=== PATIENT | female | born 1940 | race Caucasian/White ===

== ENCOUNTER → 2016-06-03 | Outpatient (CLI) | payer MEDICARE, OTHER ==
[~2016-06-03] MED LIST: IOHEXOL 350 MG/ML 100ML IJ ONE
[2016-06-03 09:10] VITALS: BP 160/80
[2016-06-03 10:00] VITALS: BP 174/84
== END | disposition home or self-care (01) ==
LOC: Rad HDHVI 09:00
PROVIDERS: ATTEND Internal Medicine Cardiovascular Disease
DX: E03.9 Hypothyroidism, unspecified (principal); E55.9 Vitamin D deficiency, unspecified
CPT/HCPCS: 36415; 70460; 70491; 82306; 84439; 84443; G0463

== ENCOUNTER → 2016-06-04 | Outpatient (CLI) | payer MEDICARE, OTHER ==
[2016-06-04 16:11] LABS: Urine Bilirubin Negative (Negative); Urine Blood Negative /uL (Negative); Urine Color Yellow (Yellow); Urine Glucose Normal (Normal); Urine Ketone Negative (Negative); Urine Nitrite Negative (Negative); Urine Urobilinogen Normal (Negative)
[2016-06-04 16:35] LABS: Albumin 3.6 g/dL (3.4-5.0); BUN/Creatinine Ratio 13.4; Bilirubin, Direct 0.1 mg/dL (0-0.2); Bilirubin, Total 0.5 mg/dL (0.2-1.0); Calcium 9.4 mg/dL (8.5-10.1); Magnesium 2.7 mg/dL (1.6-2.6); Potassium 4.4 mmol/L (3.5-5.1); Total Protein 7.5 g/dL (6.4-8.2)
[2016-06-04 17:03] LABS: Basophils # (auto) 0 uL; Basophils % (auto) 0.2 % (0.0-2.0); Eosinophils # (auto) 0.1 uL; Hematocrit 44.5 % (36.0-46.0); Hemoglobin 14.6 g/dL (12.2-16.2); Lymphocytes # (auto) 1.2 uL; Lymphocytes % (auto) 12.1 % (10.0-50.0); Mean Corpuscular Hemoglobin 30.8 pg (28.0-32.0); Mean Corpuscular Hgb Conc. 32.8 g/dL (32.0-36.0); Mean Corpuscular Volume 93.8 fL (80.0-100.0); Mean Platelet Volume 9.6 fL (7.4-10.4); Monocytes # (auto) 0.6 uL; Monocytes % (auto) 5.8 % (0.0-12.0); Neutrophils # (auto) 7.8 uL; Neutrophils % (auto) 80.9 % (37.0-80.0); Platelet Count (auto) 360 10^3/uL (140-450); Red Cell Distribution Width 13.3 % (11.6-16.0); SUSPECT VIEW TRANSMISSION; White Blood Cell 9.6 10^3/uL (4.4-10.8)
== END | disposition home or self-care (01) ==
LOC: CHF HDHVI 08:22
PROVIDERS: ATTEND Internal Medicine Cardiovascular Disease
DX: E78.00 Pure hypercholesterolemia, unspecified (principal); D64.9 Anemia, unspecified; I10 Essential (primary) hypertension; K74.1 Hepatic sclerosis; E11.9 Type 2 diabetes mellitus without complications; E83.40 Disorders of magnesium metabolism, unspecified; N39.0 Urinary tract infection, site not specified
CPT/HCPCS: 36415; 80048; 80061; 80076; 81003; 83036; 83735; 85025

== ENCOUNTER 2017-05-29 01:05 | Inpatient (IN) | payer MEDICARE, OTHER ==
[~2017-05-29] VITALS: Ht 157.5 cm; Wt 60.0 kg
[2017-05-29 02:13] LABS: Basophils # (auto) 0 uL; Basophils % (auto) 0.2 % (0.0-2.0); Eosinophils # (auto) 0 uL; Eosinophils % (auto) 0.1 % (0.0-7.0); Hematocrit 42.8 % (36.0-46.0); Hemoglobin 14.1 g/dL (12.2-16.2); Lymphocytes # (auto) 0.4 uL; Mean Corpuscular Hemoglobin 30.1 pg (28.0-32.0); Mean Corpuscular Hgb Conc. 32.8 g/dL (32.0-36.0); Mean Corpuscular Volume 91.8 fL (80.0-100.0); Monocytes # (auto) 1.3 uL; Monocytes % (auto) 5.9 % (0.0-12.0); Neutrophils # (auto) 19.6 uL; Neutrophils % (auto) 91.8 % (37.0-80.0); Platelet Count (auto) 319 10^3/uL (140-450); Red Blood Cells 4.67 10^6/uL (4.0-5.20); Red Cell Distribution Width 13.4 % (11.8-14.3); White Blood Cell 21.4 10^3/uL (4.4-10.8)
[2017-05-29] MEDS ORDERED: MECLIZINE HCL 25 MG TAB PO ONE (02:15)
[2017-05-29] MEDS ORDERED: ONDANSETRON HCL 4 MG/2 ML VIAL IV ONE (02:15)
[2017-05-29 02:29] LABS: INR 0.93 (0.9-1.15); Partial Thromboplastin Time 33.1 sec (22.64-33.71); Prothrombin Time 10.1 sec (9.37-12.3)
[2017-05-29 02:32] LABS: Urine Bacteria NONE SEEN /hpf (None Seen); Urine Blood Negative /uL (Negative); Urine Specific Gravity 1.007 (1.001-1.035); Urine WBC 2 /hpf (0 - 5)
[2017-05-29 02:32] LABS: Alanine Aminotransferase 16 U/L (13-56); Albumin 3.3 g/dL (3.4-5.0); Anion Gap 8 (5-15); Aspartate Aminotransferase 16 U/L (15-37); BUN/Creatinine Ratio 13.9; Blood Urea Nitrogen 14 mg/dL (7-18); Calcium 9.1 mg/dL (8.5-10.1); Carbon Dioxide 27 mmol/L (21-32); Chloride 98 mmol/L (98-107); GFR African American 68 mL/min; GFR Non-African American 56 mL/min; Glucose 122 mg/dL (74-106); Potassium 3.9 mmol/L (3.5-5.1); Sodium 133 mmol/L (136-145)
[2017-05-29 02:37] LABS: Alkaline Phosphatase 89 U/L (45-117); Bilirubin, Total 0.6 mg/dL (0.2-1.0); Total Protein 7.2 g/dL (6.4-8.2)
[2017-05-29] MEDS ORDERED: PIPERACILLIN-TAZOB 3.375GM 100 ML IV ONE (03:30)
[2017-05-29] MEDS ORDERED: DOCUSATE SOD 100 MG CAP PO PRN (09:30)
[2017-05-29] MEDS ORDERED: HYDROcodone-ACET 5/325MG TAB PO PRN (09:30)
[2017-05-29] MEDS ORDERED: TEMAZEPAM 15 MG CAP PO PRN (09:30)
[2017-05-29] MEDS ORDERED: NITROGLYCERIN 0.4 MG SL TAB SL PRN (09:30)
[2017-05-29] MEDS ORDERED: ALBUTEROL SULF 2.5 MG/0.5ML(0.5%) NEB SOLN NEB PRN (09:30)
[2017-05-29] MEDS ORDERED: MORPHINE SULFATE 8mg/ml INJ SDV IV PRN ×2 (09:30)
[2017-05-29] MEDS ORDERED: ONDANSETRON HCL 4 MG/2 ML VIAL IV PRN (09:30)
[2017-05-29] MEDS ORDERED: cefTRIAXone 1GM/10ml IVPUSH 10 ML IV ONE (09:30)
[2017-05-29] MEDS: MULTIPLE VITAMIN TAB PO SCH (10:26)
[2017-05-29] MEDS: FAMOTIDINE 20 MG TAB PO SCH ×2 (10:26→21:55)
[2017-05-29] MEDS: cloNIDine HCL 0.1 MG TAB PO PRN (10:27)
[2017-05-29] MEDS: METOPROLOL TARTRATE 50 MG TAB PO SCH ×2 (10:28→21:55)
[2017-05-29] MEDS: AZITHROMYCIN 500MG/ 250ML 200 ML IV SCH (10:28)
[2017-05-29] MEDS ORDERED: LEVOPOW43 PO (11:48)
[2017-05-29] MEDS ORDERED: FURO20TA3 PO (11:49)
[2017-05-29] MEDS ORDERED: CLOPIDOGREL BISULFATE 75 MG TAB PO ONE (12:00)
[2017-05-29] MEDS ORDERED: MET50T PO (12:08)
[2017-05-29] MEDS ORDERED: LEVO50TA7 PO (12:08)
[2017-05-29] MEDS ORDERED: VALS320T15 PO (12:08)
[2017-05-29] MEDS ORDERED: CLOP75TA41 PO (12:08)
[2017-05-29] MEDS ORDERED: POTA20TA53 PO (12:08)
[2017-05-29] MEDS ORDERED: [UNRECOGNIZED DRUG - CODE] PO (12:10)
[2017-05-29] MEDS ORDERED: MOME200A IN (12:10)
[2017-05-29] MEDS: VALSARTAN 80 MG TAB PO SCH ×2 (12:19→21:54)
[2017-05-29] MEDS: [UNRECOGNIZED DRUG - OTHER] PO SCH ×2 (12:30→22:00)
[2017-05-29] MEDS: BOOST PLUS 8 ounce PO SCH ×2 (13:21→18:31)
[2017-05-29] MEDS: FUROSEMIDE 20 MG TAB PO SCH (13:24)
[2017-05-29] MEDS: POTASSIUM CHL 20 Meq TABLET PO SCH ×2 (13:24→21:54)
[2017-05-29] MEDS: SODIUM CHLOR 0.9% PF (SALINE LOCK) 10ML VIAL/SYR IV SCH ×2 (14:20→21:53)
[2017-05-29] MEDS ORDERED: ATOR10TA PO (16:15)
[2017-05-29 19:06] VITALS: BP 140/65
[2017-05-29 20:00] VITALS: BP 141/71
[2017-05-29 20:37] LABS: Folate (Folic Acid) 19.17 ng/mL (5.38-24)
[2017-05-29] MEDS: ACETAMINOPHEN 325 MG TAB PO PRN (21:13)
[2017-05-29 22:00] VITALS: BP 141/71
[2017-05-29] MEDS ORDERED: VALSARTAN PO SCH (22:00)
[2017-05-29] MEDS ORDERED: POTASSIUM CHL 20 Meq TABLET PO SCH (22:00)
[2017-05-29] MEDS: Mometasone Furoate-Formoterol (Dulera) IN SCH (22:00)
[2017-05-29] MEDS ORDERED: METOPROLOL TARTRATE 50 MG TAB PO SCH ×2 (22:00)
[2017-05-30 05:00] VITALS: BP 135/71
[2017-05-30 06:31] LABS: Basophils # (auto) 0 uL; Basophils % (auto) 0.4 % (0.0-2.0); Eosinophils # (auto) 0.4 uL; Eosinophils % (auto) 3.7 % (0.0-7.0); Hematocrit 35.7 % (36.0-46.0); Hemoglobin 11.9 g/dL (12.2-16.2); Lymphocytes # (auto) 1.2 uL; Lymphocytes % (auto) 12.3 % (10.0-50.0); Mean Corpuscular Hemoglobin 30.7 pg (28.0-32.0); Mean Corpuscular Hgb Conc. 33.3 g/dL (32.0-36.0); Monocytes % (auto) 10.3 % (0.0-12.0); Neutrophils % (auto) 73.3 % (37.0-80.0); Nucleated Red Blood Cells % 0.1 %; Platelet Count (auto) 271 10^3/uL (140-450); Red Blood Cells 3.88 10^6/uL (4.0-5.20); Red Cell Distribution Width 13.1 % (11.8-14.3); White Blood Cell 9.6 10^3/uL (4.4-10.8)
[2017-05-30] MEDS: SODIUM CHLOR 0.9% PF (SALINE LOCK) 10ML VIAL/SYR IV SCH ×3 (06:36→22:00)
[2017-05-30 06:47] LABS: Potassium 4.5 mmol/L (3.5-5.1)
[2017-05-30 06:51] LABS: Albumin 2.6 g/dL (3.4-5.0); BUN/Creatinine Ratio 16.2
[2017-05-30 06:53] LABS: Bilirubin, Total 0.5 mg/dL (0.2-1.0); Total Protein 5.9 g/dL (6.4-8.2)
[2017-05-30 07:54] VITALS: BP 152/64
[2017-05-30] MEDS: Mometasone Furoate-Formoterol (Dulera) IN SCH (10:00)
[2017-05-30] MEDS: [UNRECOGNIZED DRUG - OTHER] PO SCH ×3 (10:00→20:59)
[2017-05-30] MEDS ORDERED: VALSARTAN 80 MG TAB PO SCH (11:00)
[2017-05-30] MEDS: FAMOTIDINE 20 MG TAB PO SCH ×2 (11:12→21:44)
[2017-05-30] MEDS: METOPROLOL TARTRATE 50 MG TAB PO SCH ×2 (11:12→18:00)
[2017-05-30] MEDS: CLOPIDOGREL BISULFATE 75 MG TAB PO SCH (11:13)
[2017-05-30] MEDS: FUROSEMIDE 20 MG TAB PO SCH (11:15)
[2017-05-30] MEDS: MULTIPLE VITAMIN TAB PO SCH (11:16)
[2017-05-30] MEDS: LEVOTHYROXINE SODIUM 50 MCG TAB PO SCH (11:16)
[2017-05-30] MEDS: POTASSIUM CHL 20 Meq TABLET PO SCH ×2 (11:17→21:44)
[2017-05-30] MEDS: cefTRIAXone 1GM/10ml IVPUSH 10 ML IV SCH (11:23)
[2017-05-30] MEDS: AZITHROMYCIN 500MG/ 250ML 200 ML IV SCH (11:23)
[2017-05-30] MEDS: BOOST PLUS 8 ounce PO SCH ×3 (11:24→20:57)
[2017-05-30] MEDS: cloNIDine HCL 0.1 MG TAB PO PRN (15:31)
[2017-05-30] MEDS: ACETAMINOPHEN 325 MG TAB PO PRN (15:53)
[2017-05-30 15:56] VITALS: BP 165/87
[2017-05-30 17:00] VITALS: BP 148/71
[2017-05-30] MEDS ORDERED: LORazepam 2MG/ML-1ML VIAL IV PRN (18:00)
[2017-05-30 20:00] VITALS: BP 147/79
[2017-05-30] MEDS: VALSARTAN 80 MG TAB PO SCH (20:58)
[2017-05-30] MEDS: BUDESONIDE (INHALATION) 0.5 MG/2 ML NEB NEB SCH (22:00)
[2017-05-30 22:31] VITALS: BP 147/79
[2017-05-31 05:13] VITALS: BP 158/69
[2017-05-31] MEDS: SODIUM CHLOR 0.9% PF (SALINE LOCK) 10ML VIAL/SYR IV SCH ×2 (05:32→14:08)
[2017-05-31] MEDS: VALSARTAN 80 MG TAB PO SCH ×2 (05:43→18:21)
[2017-05-31] MEDS: FUROSEMIDE 20 MG TAB PO SCH (05:44)
[2017-05-31] MEDS: METOPROLOL TARTRATE 50 MG TAB PO SCH ×2 (05:44→18:22)
[2017-05-31] MEDS: [UNRECOGNIZED DRUG - OTHER] PO SCH ×3 (06:00→18:20)
[2017-05-31] MEDS: LEVOTHYROXINE SODIUM 50 MCG TAB PO SCH (07:07)
[2017-05-31 07:35] VITALS: BP 192/90
[2017-05-31] MEDS: BOOST PLUS 8 ounce PO SCH ×3 (08:28→18:22)
[2017-05-31] MEDS: cefTRIAXone 1GM/10ml IVPUSH 10 ML IV SCH (09:52)
[2017-05-31 09:58] VITALS: BP 140/77
[2017-05-31] MEDS: AZITHROMYCIN 500MG/ 250ML 250 ML IV SCH (09:58)
[2017-05-31] MEDS: POTASSIUM CHL 20 Meq TABLET PO SCH ×2 (09:58→22:24)
[2017-05-31] MEDS: CLOPIDOGREL BISULFATE 75 MG TAB PO SCH (09:58)
[2017-05-31] MEDS: FAMOTIDINE 20 MG TAB PO SCH ×2 (09:58→22:24)
[2017-05-31] MEDS: MULTIPLE VITAMIN TAB PO SCH (09:58)
[2017-05-31] MEDS: BUDESONIDE (INHALATION) 0.5 MG/2 ML NEB NEB SCH (10:35)
[2017-05-31] MEDS: ACETAMINOPHEN 325 MG TAB PO PRN (14:28)
[2017-05-31 17:03] VITALS: BP 142/67
[2017-05-31 22:26] VITALS: BP 164/86
[2017-05-31] MEDS: cloNIDine HCL 0.1 MG TAB PO PRN (22:27)
[2017-06-01] MEDS: SODIUM CHLOR 0.9% PF (SALINE LOCK) 10ML VIAL/SYR IV SCH ×4 (01:40→21:39)
[2017-06-01] MEDS: ACETAMINOPHEN 325 MG TAB PO PRN (02:26)
[2017-06-01 05:24] VITALS: BP 154/76
[2017-06-01] MEDS: METOPROLOL TARTRATE 50 MG TAB PO SCH ×2 (06:00→18:32)
[2017-06-01] MEDS: VALSARTAN 80 MG TAB PO SCH ×2 (07:04→18:00)
[2017-06-01] MEDS: FUROSEMIDE 20 MG TAB PO SCH (07:08)
[2017-06-01] MEDS: LEVOTHYROXINE SODIUM 50 MCG TAB PO SCH (07:08)
[2017-06-01] MEDS: [UNRECOGNIZED DRUG - OTHER] PO SCH (07:09)
[2017-06-01 07:11] LABS: Basophils # (auto) 0 uL; Basophils % (auto) 0.5 % (0.0-2.0); Eosinophils # (auto) 0.2 uL; Eosinophils % (auto) 2.8 % (0.0-7.0); Hematocrit 37.9 % (36.0-46.0); Hemoglobin 12.6 g/dL (12.2-16.2); Lymphocytes # (auto) 1.1 uL; Lymphocytes % (auto) 12.2 % (10.0-50.0); Mean Corpuscular Hemoglobin 30.4 pg (28.0-32.0); Mean Corpuscular Hgb Conc. 33.4 g/dL (32.0-36.0); Mean Corpuscular Volume 91.1 fL (80.0-100.0); Monocytes # (auto) 0.8 uL; Monocytes % (auto) 9.3 % (0.0-12.0); Neutrophils # (auto) 6.5 uL; Neutrophils % (auto) 75.2 % (37.0-80.0); Nucleated Red Blood Cells % 0.1 %; Platelet Count (auto) 308 10^3/uL (140-450); Red Blood Cells 4.16 10^6/uL (4.0-5.20); Red Cell Distribution Width 12.9 % (11.8-14.3); White Blood Cell 8.6 10^3/uL (4.4-10.8)
[2017-06-01 07:25] VITALS: BP 167/89
[2017-06-01 07:46] LABS: Albumin 2.7 g/dL (3.4-5.0); BUN/Creatinine Ratio 17.5; Bilirubin, Total 0.2 mg/dL (0.2-1.0); Calcium 9.1 mg/dL (8.5-10.1); Potassium 4.5 mmol/L (3.5-5.1); Total Protein 6.4 g/dL (6.4-8.2)
[2017-06-01] MEDS: BOOST PLUS 8 ounce PO SCH ×3 (08:14→18:00)
[2017-06-01] MEDS: AZITHROMYCIN 500MG/ 250ML 250 ML IV SCH (09:39)
[2017-06-01] MEDS: FAMOTIDINE 20 MG TAB PO SCH ×2 (09:39→21:34)
[2017-06-01] MEDS: POTASSIUM CHL 20 Meq TABLET PO SCH ×2 (09:39→21:33)
[2017-06-01] MEDS: cefTRIAXone 1GM/10ml IVPUSH 10 ML IV SCH (09:39)
[2017-06-01] MEDS: MULTIPLE VITAMIN TAB PO SCH (09:40)
[2017-06-01] MEDS: CLOPIDOGREL BISULFATE 75 MG TAB PO SCH (09:40)
[2017-06-01] MEDS: ADVAIR 500/50 IN SCH (10:55)
[2017-06-01 12:34] VITALS: BP 142/75
[2017-06-01] MEDS: SODIUM CHLORIDE 0.9% 1,000 ML IV SCH (13:54)
[2017-06-01 16:57] VITALS: BP 148/75
[2017-06-01] MEDS: ALISKIREN 150 MG PO SCH (18:33)
[2017-06-01 22:20] VITALS: BP 161/78
[2017-06-02] VITALS (7 sets, daily range): BP systolic 123–199; BP diastolic 45–88
[2017-06-02] MEDS: SODIUM CHLORIDE 0.9% 1,000 ML IV SCH ×2 (02:20→15:40)
[2017-06-02] MEDS: SODIUM CHLOR 0.9% PF (SALINE LOCK) 10ML VIAL/SYR IV SCH ×3 (06:00→22:39)
[2017-06-02] MEDS: ALISKIREN 150 MG PO SCH ×2 (06:19→18:29)
[2017-06-02] MEDS: LEVOTHYROXINE SODIUM 50 MCG TAB PO SCH (06:20)
[2017-06-02] MEDS: VALSARTAN 80 MG TAB PO SCH ×2 (06:20→18:29)
[2017-06-02] MEDS: FUROSEMIDE 20 MG TAB PO SCH (06:21)
[2017-06-02] MEDS: METOPROLOL TARTRATE 50 MG TAB PO SCH ×2 (06:21→18:29)
[2017-06-02] MEDS: cloNIDine HCL 0.1 MG TAB PO PRN ×2 (07:54→19:56)
[2017-06-02] MEDS: BOOST PLUS 8 ounce PO SCH ×3 (08:00→18:00)
[2017-06-02] MEDS: cefTRIAXone 1GM/10ml IVPUSH 10 ML IV SCH (09:00)
[2017-06-02] MEDS: ADVAIR 500/50 IN SCH (10:00)
[2017-06-02] MEDS: AZITHROMYCIN 500MG/ 250ML 250 ML IV SCH (11:21)
[2017-06-02] MEDS: FAMOTIDINE 20 MG TAB PO SCH ×2 (11:22→22:40)
[2017-06-02] MEDS: CLOPIDOGREL BISULFATE 75 MG TAB PO SCH (11:22)
[2017-06-02] MEDS: MULTIPLE VITAMIN TAB PO SCH (11:22)
[2017-06-02] MEDS: POTASSIUM CHL 20 Meq TABLET PO SCH ×2 (11:22→22:40)
[2017-06-02] MEDS ORDERED: cloNIDine HCL 0.1 MG TAB PO ONE (21:45)
== END 2017-06-02 23:40 | disposition home or self-care (01) | DRG 871 ==
LOC: EDBD 01:05 → ER 01:05 → TELE 01:06 → TELE-WESTW 18:56
PROVIDERS: ADMIT Internal Medicine; ATTEND Internal Medicine Cardiovascular Disease
DX: A41.9 Sepsis, unspecified organism (principal); J96.90 Respiratory failure, unspecified, unspecified whether with hypoxia or hypercapnia; I13.0 Hypertensive heart and chronic kidney disease with heart failure and stage 1 through stage 4 chronic kidney disease, or unspecified chronic kidney disease; J18.1 Lobar pneumonia, unspecified organism; E44.0 Moderate protein-calorie malnutrition; G62.9 Polyneuropathy, unspecified; I50.9 Heart failure, unspecified; E87.1 Hypo-osmolality and hyponatremia; N39.0 Urinary tract infection, site not specified; J44.0 Chronic obstructive pulmonary disease with (acute) lower respiratory infection; N18.3 Chronic kidney disease, stage 3 (moderate); E78.5 Hyperlipidemia, unspecified; I25.10 Atherosclerotic heart disease of native coronary artery without angina pectoris; F41.9 Anxiety disorder, unspecified; F17.200 Nicotine dependence, unspecified, uncomplicated; T45.1X5A Adverse effect of antineoplastic and immunosuppressive drugs, initial encounter; E78.00 Pure hypercholesterolemia, unspecified; I95.1 Orthostatic hypotension; E03.9 Hypothyroidism, unspecified; H91.90 Unspecified hearing loss, unspecified ear; Z86.73 Personal history of transient ischemic attack (TIA), and cerebral infarction without residual deficits; Y92.89 Other specified places as the place of occurrence of the external cause; Z85.6 Personal history of leukemia; Z82.49 Family history of ischemic heart disease and other diseases of the circulatory system; Z90.49 Acquired absence of other specified parts of digestive tract; Z98.51 Tubal ligation status; Z88.5 Allergy status to narcotic agent; Z88.2 Allergy status to sulfonamides; Z88.8 Allergy status to other drugs, medicaments and biological substances
CPT/HCPCS: 36415; 70450; 71045; 80053; 81001; 82607; 82746; 82962; 83735; 83880; 84484; 85025; 85610; 85730; 87040; 87804; 92610; 93005; 93306; 93886; 94761; 96361; 96365; 96375; 97163; J2405; J2543

== ENCOUNTER → 2017-06-11 | Outpatient (CLI) | payer MEDICARE, OTHER ==
[~2017-06-11] MED LIST changes: +ATOR10TA PO; +CLOP75TA41 PO; +FURO20TA3 PO; -IOHEXOL 350 MG/ML 100ML IJ ONE; +LEVO50TA7 PO; +MET50T PO; +MOME200A IN; +POTA20TA53 PO; +VALS320T15 PO; +[UNRECOGNIZED DRUG - CODE] PO; +cloNIDine HCL 0.1 MG TAB ONE; +cloNIDine HCL 0.1 MG TAB PO ONE; +diphenhdrAMINE HCL 50 MG/1 ML VL IV ONE; +diphenhdrAMINE HCL 50 MG/1 ML VL ONE; +methylPREDNISolone SOD SUCC 125 MG/2 ML VL IV ONE; +methylPREDNISolone SOD SUCC 125 MG/2 ML VL ONE
[2017-06-11 09:45] VITALS: BP 251/109
[2017-06-11 10:51] LABS: Basophils # (auto) 0.2 uL; Basophils % (auto) 1.4 % (0.0-2.0); Eosinophils # (auto) 0.1 uL; Eosinophils % (auto) 0.5 % (0.0-7.0); Hemoglobin 14.7 g/dL (12.2-16.2); Lymphocytes # (auto) 1.9 uL; Lymphocytes % (auto) 16.9 % (10.0-50.0); Mean Corpuscular Hemoglobin 30.4 pg (28.0-32.0); Mean Corpuscular Hgb Conc. 33.4 g/dL (32.0-36.0); Mean Corpuscular Volume 91.1 fL (80.0-100.0); Monocytes # (auto) 0.4 uL; Monocytes % (auto) 3.4 % (0.0-12.0); Neutrophils # (auto) 8.9 uL; Neutrophils % (auto) 77.8 % (37.0-80.0); Nucleated Red Blood Cells % 0.1 %; Platelet Count (auto) 393 10^3/uL (140-450); Red Blood Cells 4.83 10^6/uL (4.0-5.20); Red Cell Distribution Width 13.1 % (11.8-14.3); White Blood Cell 11.5 10^3/uL (4.4-10.8)
[2017-06-11 10:57] LABS: BUN/Creatinine Ratio 15.4; Calcium 9.3 mg/dL (8.5-10.1); Magnesium 2.4 mg/dL (1.6-2.6); Potassium 4.5 mmol/L (3.5-5.1)
== END | disposition home or self-care (01) ==
LOC: CHF HDHVI 09:45
PROVIDERS: ATTEND Internal Medicine Cardiovascular Disease
DX: D64.9 Anemia, unspecified (principal); E83.40 Disorders of magnesium metabolism, unspecified; I13.0 Hypertensive heart and chronic kidney disease with heart failure and stage 1 through stage 4 chronic kidney disease, or unspecified chronic kidney disease; I50.9 Heart failure, unspecified; N18.3 Chronic kidney disease, stage 3 (moderate); E03.9 Hypothyroidism, unspecified; F17.200 Nicotine dependence, unspecified, uncomplicated; E78.5 Hyperlipidemia, unspecified; I25.10 Atherosclerotic heart disease of native coronary artery without angina pectoris; Z88.9 Allergy status to unspecified drugs, medicaments and biological substances
CPT/HCPCS: 36415; 80048; 83735; 85025; 96374; 96375; 96376; G0463; J1200; J2930

== ENCOUNTER → 2017-10-24 | Outpatient (CLI) | payer MEDICARE, OTHER ==
[~2017-10-24] MED LIST changes: +ALIS150T11 PO; -[UNRECOGNIZED DRUG - CODE] PO; -cloNIDine HCL 0.1 MG TAB ONE; -cloNIDine HCL 0.1 MG TAB PO ONE; -diphenhdrAMINE HCL 50 MG/1 ML VL IV ONE; -diphenhdrAMINE HCL 50 MG/1 ML VL ONE; -methylPREDNISolone SOD SUCC 125 MG/2 ML VL IV ONE; -methylPREDNISolone SOD SUCC 125 MG/2 ML VL ONE
== END | disposition home or self-care (01) ==
LOC: Rad HDHVI 11:47
PROVIDERS: ATTEND Internal Medicine Cardiovascular Disease
DX: J43.9 Emphysema, unspecified (principal); N28.1 Cyst of kidney, acquired; Z87.01 Personal history of pneumonia (recurrent)
CPT/HCPCS: 71250

== ENCOUNTER → 2018-02-27 | Outpatient (CLI) | payer MEDICARE, OTHER ==
[2018-02-27 15:23] LABS: Urine Blood Negative /uL (Negative); Urine Specific Gravity 1.006 (1.001-1.035)
== END | disposition home or self-care (01) ==
LOC: LAB 12:47
PROVIDERS: ATTEND Internal Medicine Cardiovascular Disease
DX: N39.0 Urinary tract infection, site not specified (principal)
CPT/HCPCS: 81003; 87086

== ENCOUNTER → 2018-11-09 | Outpatient (CLI) | payer MEDICARE, OTHER ==
[~2018-11-09] MED LIST changes: +ALIS150T PO; -ALIS150T11 PO; +POTA-220 PO; -POTA20TA53 PO
[2018-11-09 16:05] LABS: Basophils # (auto) 0 uL; Basophils % (auto) 0.5 % (0.0-2.0); Eosinophils # (auto) 0.1 uL; Eosinophils % (auto) 0.9 % (0.0-7.0); Hematocrit 40.4 % (36.0-46.0); Hemoglobin 13.3 g/dL (12.2-16.2); Lymphocytes # (auto) 0.9 uL; Lymphocytes % (auto) 13.1 % (10.0-50.0); Mean Corpuscular Hemoglobin 30.7 pg (28.0-32.0); Mean Corpuscular Hgb Conc. 33.1 g/dL (32.0-36.0); Mean Corpuscular Volume 92.8 fL (80.0-100.0); Monocytes # (auto) 0.5 uL; Neutrophils # (auto) 5.7 uL; Neutrophils % (auto) 78.5 % (37.0-80.0); Platelet Count (auto) 283 10^3/uL (140-450); Red Blood Cells 4.35 10^6/uL (4.0-5.20); Red Cell Distribution Width 13.5 % (11.8-14.3); White Blood Cell 7.2 10^3/uL (4.4-10.8)
[2018-11-09 16:07] LABS: Urine Blood Negative /uL (Negative); Urine Specific Gravity 1.005 (1.001-1.035)
[2018-11-09 16:22] LABS: Albumin 3.8 g/dL (3.4-5.0); Potassium 4.5 mmol/L (3.5-5.1)
[2018-11-09 16:31] LABS: Bilirubin, Direct 0.1 mg/dL (0-0.2); Bilirubin, Total 0.5 mg/dL (0.2-1.0); Calcium 9.4 mg/dL (8.5-10.1); Total Protein 7.4 g/dL (6.4-8.2)
== END | disposition home or self-care (01) ==
LOC: Rad HDHVI 10:35
PROVIDERS: ATTEND Internal Medicine Cardiovascular Disease
DX: J43.9 Emphysema, unspecified (principal); E03.9 Hypothyroidism, unspecified; K90.9 Intestinal malabsorption, unspecified; N39.0 Urinary tract infection, site not specified; I70.0 Atherosclerosis of aorta; Z79.899 Other long term (current) drug therapy
CPT/HCPCS: 36415; 71046; 80048; 80061; 80076; 81003; 82306; 83036; 84443; 85025

== ENCOUNTER 2018-11-15 04:29 | Emergency (ER) | payer MEDICARE, OTHER ==
[~2018-11-15] VITALS: Ht 165.1 cm; Wt 81.6 kg
[2018-11-15] MEDS ORDERED: ALBUTEROL SULF 2.5 MG/0.5ML(0.5%) NEB SOLN NEB ONE (05:45)
[2018-11-15] MEDS ORDERED: MORPHINE SULF INJ 2 MG/ML SYRINGE 1ML IV ONE (05:45)
[2018-11-15] MEDS ORDERED: IPRATROPIUM BROM 0.5 MG/2.5ML INH SOL NEB ONE (05:45)
[2018-11-15] MEDS ORDERED: methylPREDNISolone SOD SUCC 125 MG/2 ML VL IV ONE (05:45)
[2018-11-15] MEDS ORDERED: MILK OF MAGNESIA 30ML SUSP PO ONE (05:45)
[2018-11-15] MEDS ORDERED: ONDANSETRON HCL 4 MG/2 ML VIAL IV ONE (05:45)
[2018-11-15 05:49] LABS: Basophils # (auto) 0 uL; Basophils % (auto) 0.1 % (0.0-2.0); Eosinophils # (auto) 0 uL; Eosinophils % (auto) 0.3 % (0.0-7.0); Hematocrit 41.8 % (36.0-46.0); Hemoglobin 13.6 g/dL (12.2-16.2); Lymphocytes # (auto) 1.2 uL; Lymphocytes % (auto) 7.6 % (10.0-50.0); Mean Corpuscular Hemoglobin 30.6 pg (28.0-32.0); Mean Corpuscular Hgb Conc. 32.5 g/dL (32.0-36.0); Mean Corpuscular Volume 94.1 fL (80.0-100.0); Monocytes # (auto) 0.7 uL; Monocytes % (auto) 4.1 % (0.0-12.0); Neutrophils % (auto) 87.9 % (37.0-80.0); Platelet Count (auto) 275 10^3/uL (140-450); Red Blood Cells 4.44 10^6/uL (4.0-5.20); Red Cell Distribution Width 13.6 % (11.8-14.3); White Blood Cell 15.9 10^3/uL (4.4-10.8)
[2018-11-15 06:11] LABS: Alanine Aminotransferase 16 U/L (13-56); Albumin 3.6 g/dL (3.4-5.0); Anion Gap 6 (5-15); Aspartate Aminotransferase 14 U/L (15-37); BUN/Creatinine Ratio 16.2; Blood Urea Nitrogen 25 mg/dL (7-18); Calcium 9.2 mg/dL (8.5-10.1); Carbon Dioxide 30 mmol/L (21-32); Chloride 98 mmol/L (98-107); GFR African American 42 mL/min; GFR Non-African American 34 mL/min; Glucose 129 mg/dL (74-106); Magnesium 2.2 mg/dL (1.6-2.6); Potassium 4.5 mmol/L (3.5-5.1); Sodium 134 mmol/L (136-145)
[2018-11-15 06:15] LABS: Alkaline Phosphatase 75 U/L (45-117); Bilirubin, Total 0.4 mg/dL (0.2-1.0); Total Protein 7.2 g/dL (6.4-8.2)
[2018-11-15 06:59] LABS: Urine Bacteria NONE SEEN /hpf (None Seen); Urine Blood Negative /uL (Negative); Urine Specific Gravity 1.009 (1.001-1.035); Urine WBC 2 /hpf (0 - 5)
[2018-11-15 11:29] VITALS: BP 165/82
== END 2018-11-15 11:31 | disposition home or self-care (01) ==
LOC: ER 04:29
DX: J44.9 Chronic obstructive pulmonary disease, unspecified (principal); G89.29 Other chronic pain; I10 Essential (primary) hypertension; I12.9 Hypertensive chronic kidney disease with stage 1 through stage 4 chronic kidney disease, or unspecified chronic kidney disease; N18.9 Chronic kidney disease, unspecified; M54.6 Pain in thoracic spine; F41.9 Anxiety disorder, unspecified; I25.10 Atherosclerotic heart disease of native coronary artery without angina pectoris; E78.00 Pure hypercholesterolemia, unspecified; Z86.73 Personal history of transient ischemic attack (TIA), and cerebral infarction without residual deficits; Z90.49 Acquired absence of other specified parts of digestive tract; Z98.51 Tubal ligation status; Z98.890 Other specified postprocedural states; Z85.9 Personal history of malignant neoplasm, unspecified
CPT/HCPCS: 36415; 71045; 80053; 81001; 83735; 83880; 84484; 85025; 93005; 94640; 96374; 96375; 99284; J2270; J2405; J2930; J7611; J7644

== ENCOUNTER → 2018-11-25 | Outpatient (CLI) | payer MEDICARE, OTHER ==
[2018-11-25 16:02] LABS: Calcium 10.2 mg/dL (8.5-10.1)
[2018-11-25 16:07] LABS: Albumin 3.1 g/dL (3.4-5.0); BUN/Creatinine Ratio 11.7; Bilirubin, Total 0.3 mg/dL (0.2-1.0); Total Protein 7.5 g/dL (6.4-8.2)
[2018-11-25 16:27] LABS: Hematocrit 41.2 % (36.0-46.0); Hemoglobin 13.6 g/dL (12.2-16.2); Mean Corpuscular Hemoglobin 30.6 pg (28.0-32.0); Mean Corpuscular Volume 92.5 fL (80.0-100.0); Platelet Count (auto) 485 10^3/uL (140-450); Red Blood Cells 4.46 10^6/uL (4.0-5.20); Red Cell Distribution Width 13.2 % (11.8-14.3); White Blood Cell 8.4 10^3/uL (4.4-10.8)
[2018-11-25 16:49] LABS: Band Neutrophils % (manual) 0; Basophils % (manual) 0 (0.0-2.0); Blast Cells 0; Metamyelocytes % 0; Myelocytes % 0; Promyelocytes % 0; Reactive Lymphocytes 0
[2018-11-25 18:13] LABS: Eosinophils % (manual) 1 (0-7); Lymphocytes % (manual) 9 (10.0-50.0); Monocytes % (manual) 3 (0-12)
== END | disposition home or self-care (01) ==
LOC: Rad HDHVI 13:12
PROVIDERS: ATTEND Internal Medicine Cardiovascular Disease
DX: M48.54XA Collapsed vertebra, not elsewhere classified, thoracic region, initial encounter for fracture (principal); D64.9 Anemia, unspecified; I11.0 Hypertensive heart disease with heart failure; I50.9 Heart failure, unspecified
CPT/HCPCS: 36415; 71046; 80053; 83880; 85007; 85027

== ENCOUNTER → 2018-12-03 | Outpatient (CLI) | payer MEDICARE, OTHER ==
[2018-12-03 16:06] LABS: BUN/Creatinine Ratio 20.3; Calcium 9.8 mg/dL (8.5-10.1); Potassium 4.3 mmol/L (3.5-5.1)
[2018-12-03 16:18] LABS: Urine Blood Negative /uL (Negative); Urine Specific Gravity 1.006 (1.001-1.035)
== END | disposition home or self-care (01) ==
LOC: LAB 12:07
PROVIDERS: ATTEND Internal Medicine Cardiovascular Disease
DX: N39.0 Urinary tract infection, site not specified (principal); I10 Essential (primary) hypertension
CPT/HCPCS: 36415; 80048; 81003

== ENCOUNTER → 2019-05-07 | Outpatient (CLI) | payer MEDICARE, OTHER | END | disposition home or self-care (01) | LOC: Rad HDHVI 11:18 | PROVIDERS: ATTEND Internal Medicine Cardiovascular Disease | DX: I70.0 Atherosclerosis of aorta (principal); M81.0 Age-related osteoporosis without current pathological fracture; R06.02 Shortness of breath | CPT/HCPCS: 71046 ==

== ENCOUNTER 2019-07-01 05:48 | Inpatient (IN) | payer MEDICARE, OTHER ==
[~2019-07-01] VITALS: Ht 160 cm; Wt 58.9 kg
[2019-07-01 06:31] LABS: Basophils # (auto) 0.1 10 ^3/uL (0-0.2); Basophils % (auto) 0.5 % (0.0-2.0); Eosinophils # (auto) 0 10 ^3/uL (0-0.8); Eosinophils % (auto) 0.1 % (0.0-7.0); Hematocrit 38.1 % (36.0-46.0); Hemoglobin 12.4 g/dL (12.2-16.2); Mean Corpuscular Hemoglobin 28.9 pg (28.0-32.0); Mean Corpuscular Hgb Conc. 32.4 g/dL (32.0-36.0); Mean Corpuscular Volume 89.2 fL (80.0-100.0); Monocytes % (auto) 3.8 % (0.0-12.0); Neutrophils # (auto) 22.9 10 ^3/uL (1.6-8.6); Neutrophils % (auto) 91.6 % (37.0-80.0); Platelet Count (auto) 407 10^3/uL (140-450); Red Blood Cells 4.27 10^6/uL (4.0-5.20)
[2019-07-01 06:53] LABS: Albumin 2.8 g/dL (3.4-5.0); Anion Gap 5 (5-15); Blood Urea Nitrogen 25 mg/dL (7-18); Calcium 8.8 mg/dL (8.5-10.1); Carbon Dioxide 29 mmol/L (21-32); Chloride 96 mmol/L (98-107); Magnesium 1.8 mg/dL (1.6-2.6); Potassium 3.8 mmol/L (3.5-5.1); Sodium 130 mmol/L (136-145)
[2019-07-01 06:56] LABS: BUN/Creatinine Ratio 18.8; GFR African American 49 mL/min; GFR Non-African American 41 mL/min; Glucose 141 mg/dL (74-106)
[2019-07-01 07:15] LABS: Alanine Aminotransferase 13 U/L (13-56); Alkaline Phosphatase 87 U/L (45-117); Aspartate Aminotransferase 12 U/L (15-37); Bilirubin, Total 0.3 mg/dL (0.2-1.0); Total Protein 7.3 g/dL (6.4-8.2)
[2019-07-01] MEDS ORDERED: cefTRIAXone 1GM/50ML D5W 50 ML IV ONE (07:15)
[2019-07-01] MEDS ORDERED: AZITHROMYCIN 500MG/ 250ML 250 ML IV ONE (07:15)
[2019-07-01] MEDS ORDERED: NITROGLYCERIN 0.4 MG SL TAB SL PRN (09:45)
[2019-07-01] MEDS ORDERED: MORPHINE SULF INJ 2 MG/ML SYRINGE 1ML IV PRN (09:45)
[2019-07-01] MEDS ORDERED: ACETAMINOPHEN 500 MG TAB PO PRN (10:00)
[2019-07-01] MEDS ORDERED: CLINDAMYCIN 900MG IV 50 ML IV ONE (10:00)
[2019-07-01] MEDS ORDERED: FAMOTIDINE 20 MG TAB PO SCH (10:00)
[2019-07-01] MEDS ORDERED: ENOXAPARIN SOD 40 MG/0.4 ML SYRINGE SC SCH (10:00)
[2019-07-01] MEDS ORDERED: levoFLOXacin 750MG 150 ML IV ONE (10:00)
[2019-07-01] MEDS ORDERED: LACTULOSE 20Gm/30ML SOLN PO PRN (10:00)
[2019-07-01] MEDS ORDERED: DEXTROSE (50%) 50ML SYRG IV PRN (10:00)
[2019-07-01] MEDS ORDERED: ALBUTEROL SULF 2.5 MG/0.5ML(0.5%) NEB SOLN NEB PRN (10:00)
[2019-07-01] MEDS ORDERED: traMADol HCL 50 MG TAB PO PRN (10:00)
[2019-07-01] MEDS ORDERED: levoFLOXacin 500MG 100 ML IV SCH (10:00)
[2019-07-01] MEDS ORDERED: ENOXAPARIN SOD 30 MG/0.3 ML SYRINGE SC ONE (10:15)
[2019-07-01] MEDS ORDERED: FAMOTIDINE 20 MG TAB PO ONE (10:15)
[2019-07-01 10:24] VITALS: BP 128/58
[2019-07-01] MEDS: SODIUM CHLORIDE 0.9% 1,000 ML IV SCH ×2 (10:55→23:16)
[2019-07-01] MEDS: ASPirin 81 mg TAB PO SCH (10:55)
[2019-07-01 12:04] LABS: Urine Bacteria NONE SEEN /hpf (None Seen); Urine Blood Negative /uL (Negative); Urine Specific Gravity 1.011 (1.001-1.035); Urine WBC 201 /hpf (0 - 5)
[2019-07-01] MEDS ORDERED: IPRATROPIUM BROM 0.5 MG/2.5ML INH SOL NEB SCH (14:00)
[2019-07-01] MEDS ORDERED: ALBUTEROL SULF 2.5 MG/0.5ML(0.5%) NEB SOLN NEB SCH (14:00)
[2019-07-01] MEDS: ALBUTEROL SULF HFA 90MCG INH 200DOSE IN SCH ×2 (14:03→22:45)
--- NOTE | 2019-07-01 14:03 | NUR ---
Respiratory note: PT GIVEN 2 PUFFS (180MCG) ALBUTEROL VIA MDI WITH CHAMBER, WITH NO ADVERSE EFFECTS NOTED BY RN. SPO2 99% ON 2L NC,HR 88, RR 16, BS CLEAR/DIMINISHED BILATERALLY. CHARTING COMPLETE OUTSIDE OF ROOM. WILL CONTINUE TO MONITOR PT.
[2019-07-01] MEDS: ACCU-CHEK COMFORT CURVE STRIP VI SCH ×3 (14:28→21:22)
[2019-07-01] MEDS: CLINDAMYCIN 600MG IV 50 ML IV SCH ×2 (14:31→21:21)
[2019-07-01 15:00] VITALS: BP 149/73
--- NOTE | 2019-07-01 15:45 | NUR ---
Telemetry admit from ER [facility] admitted to Telemetry unit after SBAR received. Patient oriented to Lisa Berkowitz, primary RN, unit, room, bed, and unit policies regarding patient care and visiting hours. Patient now on continuous telemetry monitoring, tele box # 8 and telemetry reading on arrival to unit is . Patient placed on bedside oxygen, weighed by bedscale and encouraged to call if they need something. All questions and concerns addressed, patient verbalized understanding. Note:
[2019-07-01] MEDS ORDERED: HYDR50TA15 PO (16:14)
[2019-07-01] MEDS ORDERED: ESOM40CA39 PO (16:27)
[2019-07-01] MEDS ORDERED: [UNRECOGNIZED DRUG - CODE] PO (16:27)
[2019-07-01] MEDS ORDERED: TIOT17SP IN (16:27)
[2019-07-01] MEDS ORDERED: IPRA0.03 (16:27)
[2019-07-01] MEDS ORDERED: FLUT1AER3 IN (16:27)
[2019-07-01] MEDS ORDERED: DOXA4TAB5 PO (16:27)
--- NOTE | 2019-07-01 18:20 | NUR ---
Pt Arrived on Unit Pt arrived on unit from [facility]. Pt is /ox4 with no s/s of distress or SOB. Pt is currenlty on 2L via NC. Safety measures maintained with call light within reach, bed in lowest position and side rails up. Will continue to monitor.
--- NOTE | 2019-07-01 18:52 | NUR ---
POM Meds taken to pharmacy
[2019-07-01 21:18] VITALS: BP 160/74
--- NOTE | 2019-07-01 21:30 | NUR ---
PATIENT STATES SHE TAKES MEDICATIONS AT NIGHT. INFORMED PATIENT NONE OF HER HOME MEDICATIONS WAS CONTINUED BY DR SINGLETON. PATIENT CURRENT CP 160/[address] SINGLETON REGARDING PATIENT HOME MEDICATION LIST AND CURRENT BP. AWAITING CALL BACK. Addendum: 07/02/19 at 0627 by JUAN ANTONIO BRODY RN RN DR SINGLETON CALLED BACK AND STATES TO CONTINUE HOME MEDICATIONS.
--- NOTE | 2019-07-01 22:04 | NUR ---
RT NOTE PT WAS SEEN BY RT FOR MDI TX. PT TOLERATES WELL VIA SPACER. CONT ORDERED Addendum: 07/01/19 at 2305 by Callie Lucas RT Amended: Links added.
[2019-07-02 05:10] VITALS: BP 167/83
[2019-07-02] MEDS: CLINDAMYCIN 600MG IV 50 ML IV SCH ×3 (05:29→22:44)
[2019-07-02] MEDS: ACCU-CHEK COMFORT CURVE STRIP VI SCH (05:29)
[2019-07-02 06:24] LABS: Basophils # (auto) 0 10 ^3/uL (0-0.2); Eosinophils # (auto) 0 10 ^3/uL (0-0.8); Hematocrit 32.6 % (36.0-46.0); Hemoglobin 10.9 g/dL (12.2-16.2); Lymphocytes # (auto) 0.3 10 ^3/uL (0.4-5.4); Lymphocytes % (auto) 2.2 % (10.0-50.0); Mean Corpuscular Hemoglobin 29.2 pg (28.0-32.0); Mean Corpuscular Hgb Conc. 33.3 g/dL (32.0-36.0); Mean Corpuscular Volume 87.6 fL (80.0-100.0); Monocytes # (auto) 0 10 ^3/uL (0-1.3); Monocytes % (auto) 0.3 % (0.0-12.0); Neutrophils # (auto) 15.2 10 ^3/uL (1.6-8.6); Neutrophils % (auto) 97.5 % (37.0-80.0); Platelet Count (auto) 341 10^3/uL (140-450); Red Blood Cells 3.72 10^6/uL (4.0-5.20); Red Cell Distribution Width 15.7 % (11.8-14.3); White Blood Cell 15.6 10^3/uL (4.4-10.8)
[2019-07-02] MEDS: ALBUTEROL SULF HFA 90MCG INH 200DOSE IN SCH ×3 (06:43→22:00)
[2019-07-02] MEDS ORDERED: IPRA0.03 (07:24)
[2019-07-02 08:20] VITALS: BP 156/74
[2019-07-02] MEDS: levoFLOXacin 250MG 50 ML IV SCH (08:43)
[2019-07-02] MEDS: FAMOTIDINE 20 MG TAB PO SCH (08:44)
[2019-07-02] MEDS: METOPROLOL TARTRATE 50 MG TAB PO SCH ×2 (08:44→21:52)
[2019-07-02] MEDS: ASPirin 81 mg TAB PO SCH (08:45)
[2019-07-02] MEDS: POTASSIUM CHL 20 Meq TABLET PO SCH ×2 (08:45→22:44)
[2019-07-02] MEDS: FUROSEMIDE 20 MG TAB PO SCH (08:45)
[2019-07-02] MEDS: hydrALAZINE HCL 25 MG TAB PO SCH ×3 (08:46→23:19)
[2019-07-02 08:47] VITALS: BP 156/74
[2019-07-02] MEDS: ENOXAPARIN SOD 30 MG/0.3 ML SYRINGE SC SCH (10:22)
[2019-07-02] MEDS: SODIUM CHLORIDE 0.9% 1,000 ML IV SCH ×2 (12:36→22:45)
[2019-07-02 13:02] VITALS: BP 143/64
[2019-07-02] MEDS ORDERED: SODIUM CHLORIDE 0.9% 1,000 ML IV ONE (14:30)
--- NOTE | 2019-07-02 14:38 | NUR ---
Respiratory note: PT REQUESTED THAT SHE TAKE ONLY 1 PUFF DUE TO THE FEELING SHE GETS WHEN SHE TAKES 2 PUFFS. SHE STATES SHE DOESN'T LIKE THE FEELING. SHE WANTS TO SEE DR SINGLETON REGARDING A MEDICATION SHE COULDN'T REMEMBER THE NAME OF, WHICH MAY BE ATROVENT. SHE IS WANTING TO DISCUSS THIS MED WITH DR SINGLETON IN PARTICULAR. RN MADE AWARE. WILL ENDORSE TO AT RISK SPECIALIST RT.
--- NOTE | 2019-07-02 16:29 | NUR ---
Patient's BP is 182/78, no s/s of distress noted/stated . Patient is alert and orientedx4. Ghulam Salinas for orders. Addendum: 07/02/19 at 1953 by Radha Barron RN *1700 orders received.
[2019-07-02 16:36] VITALS: BP 182/78
[2019-07-02] MEDS: cloNIDine HCL 0.1 MG TAB PO PRN (17:28)
--- NOTE | 2019-07-02 19:22 | NUR ---
closing shift note Patient comfortably resting in bed, no s/s of distress/sob noted stated. No c/o pain. Bed at lowest locked position and call light within reach. Care endorsed to NOC RN.
[2019-07-02 22:00] VITALS: BP 140/69
--- NOTE | 2019-07-02 22:05 | NUR ---
RT NOTE PT WAS SEEN BY RT FOR MDI ADMINISTRATION. PT WAS SLEEPING BUT EASILY AWAKENED. PT REFUSED MDI AT THIS TIME STATING THAT IT WILL KEEP HER AWAKE ALL NIGHT. BRENDAN PARIKH AWARE AND WILL CALL IF PT NEEDS TX BEFORE NEXT SCHEDULED TIME. HR 67, RR 16, BS CLEAR/DIMINISHED, POX 94% ON 2L NASAL CANNULA. PT SOUNDS DRY IN HER NARES, HUMIDITY WAS GOING TO PLACED ON HER OXYGEN, BUT PT REFUSED IT WELL. PT SAYS SHE DOESN'T USE IT AT HOME AND DOESN'T FEEL LIKE SHE NEEDS IT. BRENDAN PARIKH NOTIFIED WELL. CONT ORDERED
--- NOTE | 2019-07-02 22:40 | NUR ---
pt refusing blood pressure medications. pt states that her blood pressure at 140/69 is too low. educated on the need for the blood pressure medications. pt verbalized understanding.
--- NOTE | 2019-07-02 23:19 | NUR ---
Pt stated that she now would like to take the hydralazine. Rechecked her bp it was 154/72. pt felt better about taking it.
[2019-07-03 04:39] VITALS: BP 145/78
[2019-07-03] MEDS: CLINDAMYCIN 600MG IV 50 ML IV SCH ×3 (05:24→22:27)
[2019-07-03] MEDS: ALBUTEROL SULF HFA 90MCG INH 200DOSE IN SCH ×3 (06:00→22:13)
--- NOTE | 2019-07-03 06:45 | NUR ---
Respiratory note: MDI REFUSED. PT WANTS TO SLEEP. NO SIGNS OR SYMPTOMS OF RESPIRATORY DISTRESS NOTED. RN AWARE OF PT REFUSAL.
--- NOTE | 2019-07-03 08:00 | NUR ---
Morning note Patient resting in bed with even and unlabored respirations, no distress noted. Instructed patient on POC, fall precautions, pressure injury prevention and to call for assistance as needed. Patient verbalized understanding. Patient is S[place]. Fall precautions in place with call light within reach.
--- NOTE | 2019-07-03 08:30 | NUR ---
Patient daughter called for an update Patient's daughter, Nadia, called for an update. Password obtained. Update provided.
[2019-07-03 09:17] VITALS: BP 132/65
[2019-07-03] MEDS: FAMOTIDINE 20 MG TAB PO SCH (10:19)
[2019-07-03] MEDS: FUROSEMIDE 20 MG TAB PO SCH (10:20)
[2019-07-03] MEDS: POTASSIUM CHL 20 Meq TABLET PO SCH ×2 (10:20→22:28)
[2019-07-03] MEDS: METOPROLOL TARTRATE 50 MG TAB PO SCH ×2 (10:21→22:28)
[2019-07-03] MEDS: ENOXAPARIN SOD 30 MG/0.3 ML SYRINGE SC SCH (10:22)
[2019-07-03] MEDS: ASPirin 81 mg TAB PO SCH (10:22)
[2019-07-03] MEDS: hydrALAZINE HCL 25 MG TAB PO SCH ×2 (10:24→22:27)
[2019-07-03] MEDS: levoFLOXacin 250MG 50 ML IV SCH (10:24)
[2019-07-03] MEDS ORDERED: traMADol HCL 50 MG TAB PO PRN (11:15)
--- NOTE | 2019-07-03 12:19 | NUR ---
MD was at bedside - Dr. Salinas Informed MD that patient reports "loosing her voice". MD verbalized understanding. Order received and read back to verify.
[2019-07-03] MEDS ORDERED: FLUCONAZOLE 100 MG TAB PO ONE (12:30)
[2019-07-03 12:47] VITALS: BP 151/68
--- NOTE | 2019-07-03 13:50 | NUR ---
Provided reminder to turn and reposition Patient verbalized understanding. Patient able to turn self independently. Addendum: 07/03/19 at 1351 by Jillian Smith RN Amended: Links added.
--- NOTE | 2019-07-03 14:15 | NUR ---
Respiratory note: MDI GIVEN BY RT, TOLERATED WELL. HR 57, RR 14, SPO2 96% ON 2 L NC, BS REVEAL IE WHEEZES.
[2019-07-03] MEDS: SODIUM CHLORIDE 0.9% 1,000 ML IV SCH ×2 (15:16→19:28)
--- NOTE | 2019-07-03 15:56 | NUR ---
Instructed patient to reposition in bed Patient stated "I'm using the pot right now then I will." Addendum: 07/03/19 at 1556 by Jillian Smith RN Amended: Links added.
[2019-07-03 16:30] VITALS: BP 159/68
--- NOTE | 2019-07-03 16:37 | NUR ---
Patient daughter called for an update Patient's daughter, Nadia, called for an update. Password obtained. Update provided.
--- NOTE | 2019-07-03 18:10 | NUR ---
Patient ambulated in hallway with physical therapist
--- NOTE | 2019-07-03 18:47 | NUR ---
Closing note Patient resting in bed with even and unlabored respirations, no distress noted. Fall precautions in place with call light within reach.
--- NOTE | 2019-07-03 19:11 | NUR ---
Care endorsed to BRENDAN Fitzgerald.
--- NOTE | 2019-07-03 19:30 | NUR ---
PM Note Patient resting in bed with even and unlabored respirations, no distress noted. Instructed patient on POC, fall precautions, pressure injury prevention and to call for assistance as needed. Patient verbalized understanding. Bed in low position. Call light with in reach. will continue to monitor.
[2019-07-03 22:00] VITALS: BP 171/75
--- NOTE | 2019-07-03 22:33 | NUR ---
COMPLETE LINEN CHANGE. CLEANED PATIENT. Z GUARD ON BOTTOM. WILL CONTINUE TO MONITOR.
[2019-07-04 05:00] VITALS: BP 186/83
--- NOTE | 2019-07-04 05:07 | NUR ---
Incentive spirometer Gave pt incentive spirometer. Educated pt on how to use it. pt verbalized understanding and used it.
[2019-07-04] MEDS: cloNIDine HCL 0.1 MG TAB PO PRN ×2 (05:09→23:20)
[2019-07-04] MEDS: CLINDAMYCIN 600MG IV 50 ML IV SCH (05:10)
[2019-07-04 06:04] LABS: Basophils # (auto) 0 10 ^3/uL (0-0.2); Basophils % (auto) 0.1 % (0.0-2.0); Eosinophils # (auto) 0.2 10 ^3/uL (0-0.8); Eosinophils % (auto) 1.9 % (0.0-7.0); Hematocrit 33.9 % (36.0-46.0); Hemoglobin 11.1 g/dL (12.2-16.2); Lymphocytes # (auto) 0.9 10 ^3/uL (0.4-5.4); Lymphocytes % (auto) 7.3 % (10.0-50.0); Mean Corpuscular Hemoglobin 29.1 pg (28.0-32.0); Mean Corpuscular Hgb Conc. 32.8 g/dL (32.0-36.0); Mean Corpuscular Volume 88.8 fL (80.0-100.0); Monocytes # (auto) 1.2 10 ^3/uL (0-1.3); Monocytes % (auto) 9.6 % (0.0-12.0); Neutrophils # (auto) 10.4 10 ^3/uL (1.6-8.6); Neutrophils % (auto) 81.1 % (37.0-80.0); Platelet Count (auto) 334 10^3/uL (140-450); Red Blood Cells 3.82 10^6/uL (4.0-5.20); White Blood Cell 12.9 10^3/uL (4.4-10.8)
[2019-07-04] MEDS: ALBUTEROL SULF HFA 90MCG INH 200DOSE IN SCH ×3 (06:24→21:38)
[2019-07-04 06:25] LABS: Calcium 8.7 mg/dL (8.5-10.1); Potassium 4.1 mmol/L (3.5-5.1)
[2019-07-04 06:27] VITALS: BP 129/54
[2019-07-04 06:29] LABS: Albumin 2.4 g/dL (3.4-5.0); BUN/Creatinine Ratio 18.9
[2019-07-04 06:31] LABS: Bilirubin, Total 0.5 mg/dL (0.2-1.0); Total Protein 6.5 g/dL (6.4-8.2)
--- NOTE | 2019-07-04 07:50 | NUR ---
Morning note Patient resting in bed with even and unlabored respirations; eyes closed, no distress noted. Fall precautions in place with call light within reach.
[2019-07-04] MEDS: ENOXAPARIN SOD 30 MG/0.3 ML SYRINGE SC SCH (08:47)
[2019-07-04] MEDS: FAMOTIDINE 20 MG TAB PO SCH (08:47)
[2019-07-04] MEDS: levoFLOXacin 250MG 50 ML IV SCH (08:47)
[2019-07-04] MEDS: ONDANSETRON HCL 4 MG/2 ML VIAL IV PRN ×2 (08:47→21:42)
[2019-07-04] MEDS: hydrALAZINE HCL 25 MG TAB PO SCH ×2 (08:48→22:02)
[2019-07-04] MEDS: ASPirin 81 mg TAB PO SCH (08:48)
[2019-07-04] MEDS: POTASSIUM CHL 20 Meq TABLET PO SCH ×2 (08:48→22:02)
[2019-07-04] MEDS: FUROSEMIDE 20 MG TAB PO SCH (08:48)
[2019-07-04] MEDS: FLUCONAZOLE 100 MG TAB PO SCH (08:48)
[2019-07-04] MEDS: METOPROLOL TARTRATE 50 MG TAB PO SCH ×2 (08:48→22:02)
[2019-07-04 09:00] VITALS: BP 117/58
--- NOTE | 2019-07-04 11:27 | NUR ---
Notified Dr. Salinas that patient has c/o "not feeling good" today Patient reporting nausea with no vomiting. Patient denies constipation or abdominal pain. Orders received and read back to verify.
--- NOTE | 2019-07-04 11:36 | NUR ---
Contacted patient's daughter to update on patient's status Password obtained. Update provided.
--- NOTE | 2019-07-04 11:47 | NUR ---
X-ray tech was at bedside
--- NOTE | 2019-07-04 11:47 | NUR ---
Provided patient with her personal yogurt brought from home by her daughter.
--- NOTE | 2019-07-04 12:43 | NUR ---
RE: urine culture results/ABG results - notified Notified Dr. Salinas of ABG results. verbalized understanding. Continue to monitor as ordered. Notified Dr. Salinas of urine culture results with susceptibility. verbalized understanding. Orders received and read back to verify.
[2019-07-04 13:00] VITALS: BP 148/68
[2019-07-04] MEDS ORDERED: levoFLOXacin 500 MG TAB PO ONE (13:00)
--- NOTE | 2019-07-04 13:00 | NUR ---
Patient resting in bed with eyes closed respirations even and unlabored, no distress noted. Call light within reach.
--- NOTE | 2019-07-04 13:57 | NUR ---
Nutrition Assessment Notes Please refer to link for full assessment notes. Est Energy needs: 3954-9265 kcals (20-23 kcal/kgBW) Est Protein needs: 62-68 gms/day (1.0-1.1 gm/kgBW) Will continue to monitor and reassess prn. Addendum: 07/04/19 at [address] Amended: Links added.
[2019-07-04 16:37] VITALS: BP 142/61
[2019-07-04] MEDS: SODIUM CHLORIDE 0.9% 1,000 ML IV SCH (17:56)
--- NOTE | 2019-07-04 19:11 | NUR ---
Care endorsed to BRENDAN Fitzgerald.
[2019-07-04 22:29] VITALS: BP 190/79
--- NOTE | 2019-07-04 23:26 | NUR ---
PT COMPLAINING OF HEADACHE. PT REQUESTING TYLENOL. TYLENOL GIVEN. PAIN 04/19.
[2019-07-05 00:18] VITALS: BP 152/76
[2019-07-05] MEDS: SODIUM CHLORIDE 0.9% 1,000 ML IV SCH (05:24)
[2019-07-05] MEDS: ALBUTEROL SULF HFA 90MCG INH 200DOSE IN SCH ×2 (05:38→13:31)
--- NOTE | 2019-07-05 05:38 | NUR ---
Respiratory note: MDI GIVEN BY RT. HR 53, RR 14, SPO2 97% ON 2 L NC, BS CLEAR AND DIMINISHED. NO SIGNS OR SYMPTOMS OF RESPIRATORY DISTRESS NOTED.
[2019-07-05 05:50] VITALS: BP 150/79
--- NOTE | 2019-07-05 07:35 | NUR ---
Opening Shift Note Assumed care of patient, awake and alert, No S/S of distress/SOB or pain. Respirations are even and unlabored. Updated on POC and instructed to call for assistance, patent verbalized understanding. Bed locked in lowest position, call light within reach, side rails up x2, safety precautions in place. Will continue to monitor for changes Q1hr and PRN.
[2019-07-05 08:59] VITALS: BP 152/70
[2019-07-05] MEDS: FAMOTIDINE 20 MG TAB PO SCH (09:46)
[2019-07-05] MEDS: METOPROLOL TARTRATE 50 MG TAB PO SCH (09:46)
[2019-07-05] MEDS: hydrALAZINE HCL 25 MG TAB PO SCH (09:47)
[2019-07-05] MEDS: POTASSIUM CHL 20 Meq TABLET PO SCH (09:47)
[2019-07-05] MEDS: ASPirin 81 mg TAB PO SCH (09:47)
[2019-07-05] MEDS: FUROSEMIDE 20 MG TAB PO SCH (09:47)
[2019-07-05] MEDS: FLUCONAZOLE 100 MG TAB PO SCH (09:48)
[2019-07-05] MEDS: ENOXAPARIN SOD 30 MG/0.3 ML SYRINGE SC SCH (09:48)
[2019-07-05] MEDS ORDERED: levoFLOXacin 250 MG TAB PO SCH (10:00)
[2019-07-05 12:58] VITALS: BP 151/68
--- NOTE | 2019-07-05 13:31 | NUR ---
Respiratory note: MDI GIVEN BY RT. HR 58, RR 14, SPO2 97% ON 2 L NC, BS CLEAR AND DIMINISHED. NO SIGNS OR SYMPTOMS OF RESPIRATORY DISTRESS NOTED.
[2019-07-05 15:41] VITALS: BP 151/68
--- NOTE | 2019-07-05 17:18 | NUR ---
Discharge home Discharge instructions given as ordered. Encourage to follow up with PMD as instructed. All questions and concerns addressed. Patient verbalized understanding. Medication reconciliation form completed and copy given to patient. Home medications held in Pharmacy returned to patient. IV removed with catheter intact, pressure dressing applied. Telemetry unit returned to ICU. Patient taken to vehicle via wheelchair with all personal belongings, accompanied by staff. No distress noted at time of departure.
== END 2019-07-05 17:18 | disposition home or self-care (01) | DRG 871 ==
LOC: ER 05:48 → EDBD 05:48 → TELE 05:49 → TELE-EAST 15:47 → TELE-CENTR 18:14
PROVIDERS: ADMIT Internal Medicine; ATTEND Internal Medicine Cardiovascular Disease
DX: A41.9 Sepsis, unspecified organism (principal); J18.9 Pneumonia, unspecified organism; G93.41 Metabolic encephalopathy; J96.90 Respiratory failure, unspecified, unspecified whether with hypoxia or hypercapnia; E87.1 Hypo-osmolality and hyponatremia; E44.0 Moderate protein-calorie malnutrition; N17.9 Acute kidney failure, unspecified; N39.0 Urinary tract infection, site not specified; J44.1 Chronic obstructive pulmonary disease with (acute) exacerbation; J44.0 Chronic obstructive pulmonary disease with (acute) lower respiratory infection; R65.20 Severe sepsis without septic shock; D64.9 Anemia, unspecified; Z20.828 Contact with and (suspected) exposure to other viral communicable diseases; M19.90 Unspecified osteoarthritis, unspecified site; E03.9 Hypothyroidism, unspecified; E78.5 Hyperlipidemia, unspecified; I11.0 Hypertensive heart disease with heart failure; I25.10 Atherosclerotic heart disease of native coronary artery without angina pectoris; Z68.23 Body mass index [BMI] 23.0-23.9, adult; I50.9 Heart failure, unspecified; F32.9 Major depressive disorder, single episode, unspecified; Z85.6 Personal history of leukemia; Z86.73 Personal history of transient ischemic attack (TIA), and cerebral infarction without residual deficits; F41.9 Anxiety disorder, unspecified; E86.0 Dehydration; R73.9 Hyperglycemia, unspecified; Z83.3 Family history of diabetes mellitus
CPT/HCPCS: 36415; 36600; 71045; 80053; 81001; 82550; 82728; 82805; 82962; 83036; 83605; 83615; 83735; 83880; 84484; 85025; 87040; 87070; 87086; 87088; 87186; 87804; 87880; 93005; 94640; 96365; 96367; 96372; 97116; 97530; 99291; G0378; J0696; J1956; J2405; J3490

== ENCOUNTER → 2019-08-12 | Outpatient (CLI) | payer MEDICARE, OTHER ==
[~2019-08-12] MED LIST changes: -ALIS150T PO; -ATOR10TA PO; +ATOR10TA52 PO; +DIA5T PO; +DOXA4TAB5 PO; +FLUT1AER3 IN; +HYDR50TA15 PO; +IPR002IS HHN; +IPRA0.03; +METO-517 PO; +MOME1SPR2; +MOME200A; -MOME200A IN; +POTA-180 PO; +TIOT17SP IN; -VALS320T15 PO; +[UNRECOGNIZED DRUG - CODE] PO
== END | disposition home or self-care (01) ==
LOC: CATH 08:11 → EDSTATUS 08-19 08:50
PROVIDERS: ATTEND Internal Medicine Cardiovascular Disease
DX: Z01.818 Encounter for other preprocedural examination (principal); I25.10 Atherosclerotic heart disease of native coronary artery without angina pectoris; Z79.899 Other long term (current) drug therapy; Z98.890 Other specified postprocedural states

== ENCOUNTER 2019-09-08 04:40 | Inpatient (IN) | payer MEDICARE, OTHER ==
[~2019-09-08] VITALS: Ht 165.1 cm; Wt 51.1 kg
[~2019-09-08 04:40] MED LIST changes: -ATOR10TA52 PO; -DIA5T PO; -IPR002IS HHN; -METO-517 PO; -MOME1SPR2; -POTA-180 PO
[2019-09-08 06:35] LABS: Basophils # (auto) 0 10 ^3/uL (0-0.2); Basophils % (auto) 0.1 % (0.0-2.0); Eosinophils # (auto) 0 10 ^3/uL (0-0.8); Hematocrit 31.9 % (36.0-46.0); Hemoglobin 10.6 g/dL (12.2-16.2); Lymphocytes # (auto) 0.4 10 ^3/uL (0.4-5.4); Lymphocytes % (auto) 1.7 % (10.0-50.0); Mean Corpuscular Hemoglobin 29.6 pg (28.0-32.0); Mean Corpuscular Hgb Conc. 33.3 g/dL (32.0-36.0); Monocytes # (auto) 1.3 10 ^3/uL (0-1.3); Monocytes % (auto) 6.2 % (0.0-12.0); Neutrophils # (auto) 19.4 10 ^3/uL (1.6-8.6); Platelet Count (auto) 347 10^3/uL (140-450); Red Blood Cells 3.58 10^6/uL (4.0-5.20); Red Cell Distribution Width 14.6 % (11.8-14.3); White Blood Cell 21.1 10^3/uL (4.4-10.8)
[2019-09-08 06:49] LABS: Potassium 3.1 mmol/L (3.5-5.1)
[2019-09-08 06:55] LABS: Albumin 2.5 g/dL (3.4-5.0); BUN/Creatinine Ratio 11.9; Bilirubin, Total 0.4 mg/dL (0.2-1.0)
[2019-09-08 06:58] LABS: Magnesium 1.7 mg/dL (1.6-2.6)
[2019-09-08 07:06] LABS: CRP High Sensitivity 6.82 mg/dL (< 0.3)
[2019-09-08 07:24] LABS: INR 1.03 (0.9-1.15); Partial Thromboplastin Time 31.5 sec (23.64-32.05)
[2019-09-08 09:39] LABS: Urine Bacteria FEW /hpf (None Seen); Urine Blood Negative /uL (Negative); Urine Specific Gravity 1.005 (1.001-1.035); Urine WBC 6 /hpf (0 - 5)
[2019-09-08] MEDS ORDERED: cefTRIAXone 1GM/50ML D5W 50 ML IV ONE (11:00)
[2019-09-08] MEDS ORDERED: NITROGLYCERIN 0.4 MG SL TAB SL PRN (13:30)
[2019-09-08] MEDS ORDERED: VANCOMYCIN 1GM/250ML 250 ML IV ONE (13:30)
[2019-09-08] MEDS ORDERED: PIPERACILLIN-TAZO 4.5GM 100 ML IV SCH (14:00)
[2019-09-08] MEDS: LEVALBUTEROL HCL 1.25 MG/3 ML NEB HHN SCH ×2 (14:00→19:57)
[2019-09-08] MEDS: PIPERACILLIN-TAZO 4.5GM 100 ML IV ONE ×2 (14:02→15:04)
[2019-09-08] MEDS ORDERED: METOPROLOL SUCCINATE XL 50 MG TAB PO ONE (14:15)
[2019-09-08] MEDS ORDERED: POTA-180 PO (14:58)
[2019-09-08] MEDS ORDERED: ATOR10TA52 PO (14:58)
[2019-09-08] MEDS ORDERED: METO-517 PO (14:59)
[2019-09-08] MEDS ORDERED: MOME1SPR2 (15:02)
[2019-09-08] MEDS ORDERED: IPR002IS HHN (15:04)
[2019-09-08] MEDS ORDERED: ACETAMINOPHEN 325 MG TAB PO ONE (18:30)
[2019-09-08] MEDS: Ensure HIGH Protein Vanilla 8oz Bottle PO SCH (19:20)
[2019-09-08] MEDS: FUROSEMIDE 20 MG TAB PO SCH (21:59)
[2019-09-08] MEDS: POTASSIUM CHL 20 Meq TABLET PO SCH (21:59)
[2019-09-08] MEDS: METOCLOPRAMIDE HCL 10 MG TAB PO SCH (22:00)
[2019-09-08 23:47] VITALS: BP 161/92
[2019-09-09] MEDS: PIPERACILLIN-TAZOB 2.25GM 50 ML IV SCH ×4 (00:13→19:48)
[2019-09-09] MEDS: cloNIDine HCL 0.1 MG TAB PO PRN (00:52)
[2019-09-09] MEDS: LEVOTHYROXINE SODIUM 50 MCG TAB PO SCH (06:49)
[2019-09-09] MEDS: Ensure HIGH Protein Vanilla 8oz Bottle PO SCH ×2 (08:59→12:00)
[2019-09-09] MEDS: FUROSEMIDE 20 MG TAB PO SCH ×2 (09:40→18:11)
[2019-09-09] MEDS: hydrALAZINE HCL 25 MG TAB PO SCH (09:40)
[2019-09-09] MEDS: CLOPIDOGREL BISULFATE 75 MG TAB PO SCH (09:40)
[2019-09-09] MEDS: POTASSIUM CHL 20 Meq TABLET PO SCH ×2 (09:40→22:00)
[2019-09-09] MEDS: METOCLOPRAMIDE HCL 10 MG TAB PO SCH ×2 (09:41→22:00)
[2019-09-09] MEDS: METOPROLOL SUCCINATE XL 50 MG TAB PO SCH (10:00)
[2019-09-09] MEDS ORDERED: DOXAZOSIN MESYL 2 MG TAB PO SCH (10:00)
[2019-09-09] MEDS: DOXAZOSIN MESYL 2 MG TAB PO SCH (10:42)
[2019-09-09] MEDS ORDERED: SODIUM CHL 3% 500 ML IV ONE (13:45)
[2019-09-09] MEDS ORDERED: POTASSIUM EFFERVESENT TAB 25 MEQ PO ONE (13:45)
[2019-09-09] MEDS ORDERED: ACETAMINOPHEN 325 MG TAB PO PRN (15:30)
[2019-09-09] MEDS ORDERED: ACETAMINOPHEN 325 MG TAB PO ONE (15:30)
[2019-09-09] MEDS ORDERED: REMDESIVIR 200 MG in NS 210ml LOADING DOSE ADULT IV ONE (17:00)
[2019-09-09] MEDS ORDERED: BUDESONIDE (INHALATION) 0.5 MG/2 ML NEB NEB SCH (22:00)
[2019-09-09] MEDS: DexAMETHasone SOD PHOS 10MG/1ML VIAL INJ IV SCH (22:00)
--- NOTE | 2019-09-09 22:20 | NUR ---
MS admit from ER [facility] admitted to MS. Patient oriented to Yuliya Wong, primary RN, unit, room, bed, and unit policies regarding patient care and visiting hours. Patient weighed by bedscale and encouraged to call if they need something. All questions and concerns addressed, patient verbalized understanding.
[2019-09-09] MEDS: LEVALBUTEROL HCL 1.25 MG/3 ML NEB HHN SCH (23:38)
[2019-09-10] VITALS (7 sets, daily range): BP systolic 131–155; BP diastolic 64–74
--- NOTE | 2019-09-10 00:10 | NUR ---
Spoke with patients daughter. All questions and concerns answered at this time regarding plan of care and medications. Completed admit assessment with information obtained from daughter/caregiver, patient is hard of hearing.
--- NOTE | 2019-09-10 00:17 | NUR ---
Wound Care Wound photo taken. Wound cleansed and Optifoam gentle applied to sacrum with barrier cream. No drainage noted.
[2019-09-10] MEDS: PIPERACILLIN-TAZOB 2.25GM 50 ML IV SCH ×4 (01:02→18:08)
--- NOTE | 2019-09-10 03:24 | NUR ---
MRSA swab sent to lab per protocol order.
--- NOTE | 2019-09-10 03:26 | NUR ---
IV insertion IV access obtained, via clean sterile technique by inserting 22 gauge catheter at right FA after 3 attempts. IV secured properly. No trauma to site. Patient tolerated well.
--- NOTE | 2019-09-10 03:27 | NUR ---
IV removal IV DC'd with clean sterile technique, catheter fully intact. Pressure dressing applied to site. Patient tolerated well.
[2019-09-10] MEDS: FUROSEMIDE 20 MG TAB PO SCH ×2 (06:28→18:08)
[2019-09-10] MEDS: DexAMETHasone SOD PHOS 10MG/1ML VIAL INJ IV SCH ×3 (06:28→22:05)
[2019-09-10] MEDS: LEVOTHYROXINE SODIUM 50 MCG TAB PO SCH (06:29)
--- NOTE | 2019-09-10 06:40 | NUR ---
RECEIVED PT ON 6L OXYMIZER SLEEPING WITH NO DISTRESS NOTED. SPO2 96% HR 85. WAITING FOR PT'S TEST RESULTS FOR COVID. RESULTS ARE PENDING. WILL CONTINUE TO MONITOR PT. NO TX GIVEN AT THIS TIME.
[2019-09-10 07:08] LABS: Potassium 3.8 mmol/L (3.5-5.1)
[2019-09-10 07:18] LABS: Albumin 2.3 g/dL (3.4-5.0); BUN/Creatinine Ratio 16.5; Bilirubin, Total 0.2 mg/dL (0.2-1.0); Calcium 8.9 mg/dL (8.5-10.1); Total Protein 6.4 g/dL (6.4-8.2)
--- NOTE | 2019-09-10 07:25 | NUR ---
OPENING SHIFT NOTE ASSUMED CARE OF PATIENT FROM MOLASSES COLORING OPERATOR RN JANINE. PATIENT IS A&O X4. PATIENT IS FATIGUE. PATIENT HAS NO S/S OF DISTRESS/SOB OR PAIN AT THIS TIME. INSTRUCTED PATIENT ON POC, PATIENT VERBALIZED UNDERSTANDING. BED IS IN LOWEST POSITION WITH SIDE RAILS RAISED X2, BED WHEELS LOCKED, BED ALARM ON, AND CALL LIGHT IS WITHIN REACH. WILL CONTINUE TO MONITOR.
[2019-09-10] MEDS: Ensure HIGH Protein Vanilla 8oz Bottle PO SCH ×3 (07:35→18:13)
--- NOTE | 2019-09-10 08:00 | NUR ---
PATIENT'S SPO2 IS 99% ON 6L OXYMIZER. TITRATED O2 TO 4L OXYMIZER AND PATIENT'S SPO2 IS 97% WILL CONTINUE TO MONITOR.
--- NOTE | 2019-09-10 08:30 | NUR ---
PATIENT'S SPO2 IS 98% ON 4L OXYMIZER TITRATED PATIENT'S O2 TO 3L OXYMIZER. PATIENT'S SPO2 IS 97% WILL CONTINUE TO MONITOR.
[2019-09-10] MEDS: METOPROLOL SUCCINATE XL 50 MG TAB PO SCH (10:00)
[2019-09-10] MEDS: DOXAZOSIN MESYL 2 MG TAB PO SCH (10:00)
[2019-09-10] MEDS: hydrALAZINE HCL 25 MG TAB PO SCH (10:00)
[2019-09-10] MEDS: POTASSIUM CHL 20 Meq TABLET PO SCH ×2 (10:36→22:07)
[2019-09-10] MEDS: CLOPIDOGREL BISULFATE 75 MG TAB PO SCH (10:36)
[2019-09-10] MEDS: METOCLOPRAMIDE HCL 10 MG TAB PO SCH ×2 (10:37→22:08)
[2019-09-10] MEDS: REMDESIVIR 100mg in NS 230ml DAILYx4DAYS (NO VENT) IV SCH (11:05)
--- NOTE | 2019-09-10 12:16 | NUR ---
Nutrition Assessment/Consult Notes Please refer to link for full assessment notes. Est Energy needs: 3835-7608 kcals (23-25 kcal/kgBW) Est Protein needs: 50-55 gms/day (1.0-1.1 gm/kgBW) Will continue to monitor and reassess prn. Addendum: 09/10/19 at [address] Amended: Links added.
--- NOTE | 2019-09-10 15:11 | NUR ---
PT ON 4L NC WITH SPO2 91% WITH NO DISTRESS NOTED. COVID TEST IS PENDING. TXS ARE ON HOLD AT THIS TIME. PT IN NO DISTRESS NOTED.
--- NOTE | 2019-09-10 16:08 | NUR ---
SPOKE WITH DR. SINGLETON AND INFORMED MD PATIENT HAS A HARD TIME SWALLOWING FOOD AND MEDICATIONS DUE TO HISTORY OF LYMPHATIC CANCER AND PATIENT IS HAVING CONSTIPATION, MD IS AWARE AND ORDERED LACTULOSE PRN. WILL FOLLOW THROUGH WITH ORDERS.
--- NOTE | 2019-09-10 17:44 | NUR ---
AIR MATTRESS: Air mattress ordered at [facility]. SILKE 09/10/19 @ 2343 Reference #[id number]. Please call [facility] at if needed to follow up. Addendum: 09/10/19 at 1745 by Michelle Ramsey RN Amended: Links added.
--- NOTE | 2019-09-10 18:08 | NUR ---
WOUND CARE NOTE: Wound care in to see patient per wound care request regarding sacral wounds that are noted present on admission. Bedside nurse took photograph of patient's wounds upon admission for reference. Patient is 79 years old female with admitting diagnosis of Pna, Resp Failure. Patient is resting in bed in Rm. 244-5. Patient is awake, alert and oriented. Patient is in no stated pain at this time. She's able to assist in turning and repositioning and her Erasmo score is 14. Skin/wound assessment done with the assistance of patient's nurse, BRENDAN Skinner. Patient's Rt (1x1cm) and Lt (0.8x1cm) sacrum noted with Stage 3 pressure injury. Wound bed is red with yellow slough,no measurable depth. srikanth wound is bright red, no drainage/odor noted. Patient reported that she has had the sacral wounds for three weeks. Cleansed patient's sacral wounds with wound cleanser,patted dry with gauze, applied Thera honey and covered with Opti foam sacral dressing. Patient tolerated well, repositioned for comfort facing her Lt side, redistributed pressure points with pillows. BRENDAN Skinner at bedside. RECOMMENDATION: Nursing to continue with Daily/PRN dressing change to sacral wounds per MD order, Dietary consult, frequent turning and repositioning schedule as condition permits, redistribute pressure points with pillows, elevate heels on pillows,air mattress (ordered), continue monitoring by wound care while patient is hospitalized. Addendum: 09/10/19 at 1913 by Michelle Ramsey RN Amended: Links added.
--- NOTE | 2019-09-10 18:10 | NUR ---
PATIENT STATES SHE IS SOB SPO2 IS 73% PLACED PATIENT ON 12L OXYMIZER AND SPO2 IS 71%. PLACED PATIENT ON 15L NON REBREATHER AND SPO2 IS NOW 98%. PAGED MD SINGLETON. AWAITING CALL BACK.
--- NOTE | 2019-09-10 18:50 | NUR ---
RECEIVED CALL BACK FROM DR. SINGLETON. ORDERED 20 MG LASIX IV.
--- NOTE | 2019-09-10 18:57 | NUR ---
CLOSING SHIFT NOTE PATIENT HAS NO S/S OF DISTRESS/SOB OR PAIN AT THIS TIME. WILL ENDORSE CARE TO CLINICAL TRAINING SPECIALIST RN
--- NOTE | 2019-09-10 19:42 | NUR ---
Respiratory note: NO TX GIVEN AT THIS TIME, MEDS HELD AND AWAITING CALL BACK FROM DR. SINGLETON FOR MDI ORDERS. PT WAS ON12L NRB MASK, SATS 96-98%. SWITCHED BACK TO 12L OXYMIZER, SATS 89-94%. PT INSTRUCTED ON SLOW DEEP BREATHS THROUGH NOSE. DENIES SOB AT THIS TIME, REMAINS ON DYNAMAP SPO2 MONITOR.
[2019-09-10] MEDS ORDERED: FUROSEMIDE 20 MG/2 ML VIAL IV ONE (20:00)
[2019-09-10] MEDS: ASCORBIC ACID 500 MG TAB PO SCH (22:08)
[2019-09-11] MEDS ORDERED: ALBUTEROL SULF HFA 90MCG INH 200DOSE IN SCH
[2019-09-11] MEDS: PIPERACILLIN-TAZOB 2.25GM 50 ML IV SCH ×4 (01:12→18:19)
[2019-09-11 05:00] VITALS: BP 142/85
--- NOTE | 2019-09-11 05:36 | NUR ---
Spoke with family Spoke with patients daughter, updated her on plan of care and events through the night. Daughter informed RN that she is "becoming symptomatic and will be testing for COVID tomorrow".
[2019-09-11] MEDS: ALBUTEROL SULF HFA 90MCG INH 200DOSE IN SCH ×3 (06:00→22:26)
--- NOTE | 2019-09-11 06:14 | NUR ---
Respiratory note: MDI GNOT AVAILABLE. PHARMACY WILL BE NOTIFIED. HR 72, RR 16, SPO2 94% 12 OXYMIZER, BS CLEAR AND DIMINISHED. NO SIGNS OR SYMPTOMS OF RESPIRATORY DISTRESS NOTED. WILL CONTINUE TO MONITOR ORDERED.
[2019-09-11] MEDS: BUDESONIDE (INHALATION) 180 MCG IH IN SCH ×2 (06:16→22:26)
[2019-09-11] MEDS: DexAMETHasone SOD PHOS 10MG/1ML VIAL INJ IV SCH ×2 (06:40→14:00)
[2019-09-11] MEDS: FUROSEMIDE 20 MG TAB PO SCH ×2 (06:40→17:19)
[2019-09-11] MEDS: LEVOTHYROXINE SODIUM 50 MCG TAB PO SCH (06:40)
[2019-09-11 06:52] LABS: Potassium 3.5 mmol/L (3.5-5.1)
[2019-09-11 06:58] LABS: Albumin 2.3 g/dL (3.4-5.0); BUN/Creatinine Ratio 23.6; Bilirubin, Total 0.2 mg/dL (0.2-1.0); Calcium 9.2 mg/dL (8.5-10.1); Total Protein 6.9 g/dL (6.4-8.2)
--- NOTE | 2019-09-11 07:00 | NUR ---
OPENING SHIFT NOTE ASSUMED CARE OF PATIENT FROM WANIGAN CLERK RN JANINE. PATIENT IS A&O X4. PATIENT IS FATIGUE. PATIENT HAS NO S/S OF DISTRESS/SOB OR PAIN AT THIS TIME. INSTRUCTED PATIENT ON POC, PATIENT VERBALIZED UNDERSTANDING. BED IS IN LOWEST POSITION WITH SIDE RAILS RAISED X2, BED WHEELS LOCKED, BED ALARM ON, RANGEL IS HANGING BELOW BLADDER AND IS DRAINING YELLOW URINE AND CALL LIGHT IS WITHIN REACH. WILL CONTINUE TO MONITOR.
[2019-09-11 07:41] VITALS: BP 157/73
[2019-09-11] MEDS: Ensure HIGH Protein Vanilla 8oz Bottle PO SCH ×3 (08:00→18:19)
[2019-09-11 08:45] VITALS: BP 157/73
[2019-09-11] MEDS: hydrALAZINE HCL 25 MG TAB PO SCH (10:00)
[2019-09-11] MEDS ORDERED: LACTULOSE 20Gm/30ML SOLN PO ONE (10:00)
--- NOTE | 2019-09-11 10:10 | NUR ---
CALLED PHARMACY FOR REMDESIVIR. PER PHARMACY THEY WILL SEND IT UP.
[2019-09-11] MEDS: METOCLOPRAMIDE HCL 10 MG TAB PO SCH ×2 (10:29→22:23)
[2019-09-11] MEDS: ZINC SULFATE 220mg CAP or TAB PO SCH (10:29)
[2019-09-11] MEDS: CLOPIDOGREL BISULFATE 75 MG TAB PO SCH (10:29)
[2019-09-11] MEDS: ASCORBIC ACID 500 MG TAB PO SCH ×2 (10:29→22:23)
[2019-09-11] MEDS: POTASSIUM CHL 20 Meq TABLET PO SCH ×2 (10:29→22:23)
[2019-09-11] MEDS: DOXAZOSIN MESYL 2 MG TAB PO SCH (10:30)
[2019-09-11] MEDS: METOPROLOL SUCCINATE XL 50 MG TAB PO SCH (10:30)
--- NOTE | 2019-09-11 10:30 | NUR ---
PATIENT'S HEART RATE IS 150 BPM SPO2 IS 73% ON 10 L OXYMIZER. ADMINISTERED 15L NONREBREATHER OXYGEN AND PAGED RT.
--- NOTE | 2019-09-11 10:35 | NUR ---
PATIENT'S SPO2 IS 100% ON 15L NONREBREATHER WILL TITRATE.
--- NOTE | 2019-09-11 10:40 | NUR ---
PATIENT'S SPO2 IS 90% ON 11L NON REBREATHER HEART RATE IS 90 BPM. WILL CONTINUE TO MONITOR.
--- NOTE | 2019-09-11 10:58 | NUR ---
PAGED MD SINGLETON FOR PATIENT'S HEART RATE OF 150 BPM AND SPO2 90% ON 11L NON REBREATHER. AWAITING CALL BACK
--- NOTE | 2019-09-11 11:00 | NUR ---
CALLED PHARMACY FOR REMDESIVIR AGAIN. PER PHARMACIST THEY WILL BRING IT UP IN 5 MINUTES
--- NOTE | 2019-09-11 11:12 | NUR ---
REMDISIVIR STILL NOT HERE FROM PHARMACY.
[2019-09-11] MEDS: REMDESIVIR 100mg in NS 230ml DAILYx4DAYS (NO VENT) IV SCH (11:38)
--- NOTE | 2019-09-11 12:22 | NUR ---
MD SINGLETON CALLED BACK AND UPGRADED PATIENT TO TELE AND ORDERED ABG. WILL FOLLOW THROUGH WITH ORDERS.
--- NOTE | 2019-09-11 12:30 | NUR ---
CALLED ADMITTING COUNSELOR AND INFORMED THEM OF TELE ORDER. SENT DOWN FACE SHEET. AWAITING TELE BOX.
--- NOTE | 2019-09-11 12:45 | NUR ---
CALLED BARGAIN TABLE CLERK FOR TELE MONITOR PER BARGAIN TABLE CLERK THEY WILL SEND IT SOON.
[2019-09-11 13:00] VITALS: BP 142/76
--- NOTE | 2019-09-11 13:08 | NUR ---
PATIENT ON TELE MONITOR AND PATIENT'S READING IS SINUS RHYTHM 90 BPM. WILL CONTINUE TO MONITOR.
--- NOTE | 2019-09-11 14:39 | NUR ---
CALLED PHARMACY FOR DECADRON. PER PHARMACY IT IS BACK ORDERED.
--- NOTE | 2019-09-11 14:40 | NUR ---
INFORMED MD ARELI REDD IS BACK ORDERED. IS AWARE.
--- NOTE | 2019-09-11 15:21 | NUR ---
ORDERED SOLUMEDROL IV. WILL FOLLOW THROUGH WITH ORDERS.
[2019-09-11] MEDS ORDERED: DIA5T PO (15:40)
--- NOTE | 2019-09-11 15:40 | NUR ---
SPOKE WITH DAUGHTER AND UPDATED HER WITH PATIENT'S STATUS.
[2019-09-11 17:00] VITALS: BP 138/74
--- NOTE | 2019-09-11 18:54 | NUR ---
CLOSING SHIFT NOTE PATIENT HAS NO S/S OF DISTRESS/SOB OR PAIN AT THIS TIME. WILL ENDORSE CARE TO BUS COMPANY MANAGER RN.
--- NOTE | 2019-09-11 19:15 | NUR ---
Opening Shift Note Assumed care of patient, awake and alert. No S/S of distress/SOB or pain. Patient safety measures in place bed in lowest position, side rails up x2, and call light within reach. Instructed on POC and to call for assist PRN, will continue to monitor for changes Q1hr and PRN.
[2019-09-11 19:50] VITALS: BP 152/63
--- NOTE | 2019-09-11 21:00 | NUR ---
Room change 2047: Patient's daughter Nadia called for an update. Password verified. Told daughter that the patient is currently sleeping. Daughter stated her mother had previously called requesting to watch television and use the phone. Family requesting the patient's room change to accommodate her mother's needs. Spoke to charge account identification clerk Ghulam, patient's room changed. Notified family.
[2019-09-11] MEDS: methylPREDNISolone SOD SUCC 125 MG/2 ML VL IV SCH (22:23)
[2019-09-12 00:25] VITALS: BP 107/62
[2019-09-12] MEDS: PIPERACILLIN-TAZOB 2.25GM 50 ML IV SCH ×4 (01:00→18:26)
--- NOTE | 2019-09-12 01:35 | NUR ---
Daughter Nadia called. Password verified. Nadia asking for an update on the patient. Told Nadia patient is O2 saturation is 97%. Informed family patient has been calling frequently, Nadia stated "She does that to me at home, she will call me all night so I can be in the room to watch her sleep, but I know you cannot do that it's impossible with your work load". Family recommended next time patient calls to have her call her daughter to help with distraction. Will endorse to dayshift RN also.
--- NOTE | 2019-09-12 05:31 | NUR ---
Patient sleeping Patient restless all night. Patient awake, and anxious. Patient fell asleep at 0415, vitals not taken to provide patient with needed rest. Will continue to monitor.
[2019-09-12] MEDS: methylPREDNISolone SOD SUCC 125 MG/2 ML VL IV SCH ×3 (06:35→22:30)
[2019-09-12] MEDS: LEVOTHYROXINE SODIUM 50 MCG TAB PO SCH (06:36)
[2019-09-12] MEDS: FUROSEMIDE 20 MG TAB PO SCH ×2 (06:54→18:00)
--- NOTE | 2019-09-12 07:40 | NUR ---
opening shift note Assumed care of patient from NOC RN. Patient is AOX4, no SOB or distress noted. Bed is in lowest locked position, call light is with in reach, and side rails are up x2. Updated patient on plan of care and patient verbalized understanding. Will continue to monitor q1hr and PRN.
[2019-09-12 08:00] VITALS: BP 144/63
[2019-09-12 08:00] LABS: Calcium 9.2 mg/dL (8.5-10.1)
[2019-09-12] MEDS: Ensure HIGH Protein Vanilla 8oz Bottle PO SCH ×3 (08:00→18:25)
[2019-09-12 08:03] LABS: BUN/Creatinine Ratio 23.3
[2019-09-12 08:16] LABS: Bilirubin, Total 0.2 mg/dL (0.2-1.0); Total Protein 6.2 g/dL (6.4-8.2)
[2019-09-12 09:02] LABS: Hemoglobin 11.2 g/dL (12.2-16.2)
[2019-09-12 09:04] LABS: Hematocrit 35.2 % (36.0-46.0); Mean Corpuscular Hemoglobin 28.6 pg (28.0-32.0); Mean Corpuscular Hgb Conc. 31.8 g/dL (32.0-36.0); Platelet Count (auto) 398 10^3/uL (140-450); Red Blood Cells 3.92 10^6/uL (4.0-5.20); Red Cell Distribution Width 14.9 % (11.8-14.3)
[2019-09-12 09:06] LABS: White Blood Cell 37.6 10^3/uL (4.4-10.8)
[2019-09-12 09:08] LABS: Basophils % (manual) 0 (0.0-2.0); Blast Cells 0; Eosinophils % (manual) 0 (0-7); Metamyelocytes % 0; Myelocytes % 0; Promyelocytes % 0; Reactive Lymphocytes 0
--- NOTE | 2019-09-12 09:17 | NUR ---
Paged cotton classer Placed page to cotton classer hospitalist regarding critical lab, awaiting call back.
--- NOTE | 2019-09-12 09:20 | NUR ---
Called MD Dr. Salinas notified about critical lab value, awaiting call back.
--- NOTE | 2019-09-12 09:31 | NUR ---
Received call back Received call back from Dr. Salinas. Updated MD on patient status, new orders received, will follow through will continue care.
--- NOTE | 2019-09-12 10:00 | NUR ---
Respiratory note: PT REFUSED ABG. EXPLAINED PROCEDURE AND TESTING.
[2019-09-12] MEDS: BUDESONIDE (INHALATION) 180 MCG IH IN SCH ×2 (10:17→23:19)
[2019-09-12] MEDS: ALBUTEROL SULF HFA 90MCG INH 200DOSE IN SCH ×3 (10:17→23:19)
[2019-09-12] MEDS: ZINC SULFATE 220mg CAP or TAB PO SCH (11:00)
[2019-09-12] MEDS: ASCORBIC ACID 500 MG TAB PO SCH ×2 (11:01→22:31)
[2019-09-12] MEDS: POTASSIUM CHL 20 Meq TABLET PO SCH ×2 (11:01→22:30)
[2019-09-12] MEDS: CLOPIDOGREL BISULFATE 75 MG TAB PO SCH (11:01)
[2019-09-12] MEDS: REMDESIVIR 100mg in NS 230ml DAILYx4DAYS (NO VENT) IV SCH (11:01)
[2019-09-12] MEDS: METOCLOPRAMIDE HCL 10 MG TAB PO SCH ×2 (11:01→22:31)
[2019-09-12] MEDS: DOXAZOSIN MESYL 2 MG TAB PO SCH (11:02)
[2019-09-12] MEDS: METOPROLOL SUCCINATE XL 50 MG TAB PO SCH (11:02)
[2019-09-12] MEDS: hydrALAZINE HCL 25 MG TAB PO SCH (11:03)
[2019-09-12 12:00] VITALS: BP 160/84
[2019-09-12 12:06] LABS: Band Neutrophils % (manual) 2; Lymphocytes % (manual) 3 (10.0-50.0); Monocytes % (manual) 2 (0-12)
[2019-09-12] MEDS: cloNIDine HCL 0.1 MG TAB PO PRN (13:00)
[2019-09-12 16:51] VITALS: BP 105/54
--- NOTE | 2019-09-12 17:22 | NUR ---
Notified MD of patient status Left message to Dr. Salinas regarding patient status, awaiting call back.
--- NOTE | 2019-09-12 17:23 | NUR ---
patient complaint of pain Patient stated feeling a pain level of 3/10. Will administer ordered PRN medication for pain. Will continue to monitor.
--- NOTE | 2019-09-12 19:28 | NUR ---
End of shift note endorsed care to NOC BRENDAN Davenport, no s/s of distress noted.
--- NOTE | 2019-09-12 19:30 | NUR ---
Opening Shift Note Received report from dameon Vazquez RN. Assumed care of patient, awake and alert. No S/S of distress/SOB or pain. Patient safety measures in place bed in lowest position, side rails up x2, and call light within reach. Patient is on specialty bed due to immobility. Repositioned patient to comfortable position. Instructed on POC and to call for assist PRN, will continue to monitor for changes Q1hr and PRN.
[2019-09-12 20:00] VITALS: BP 143/75
[2019-09-12 23:14] VITALS: BP 143/75
--- NOTE | 2019-09-12 23:21 | NUR ---
RT NOTE PT WAS SEEN BY RT FOR MDI TX. PT TOLERATES ALBUTEROL WELL VIA SPACER. PT RINSED MOUTH POST PULMICORT INHALER. CONT ORDERED Addendum: 09/12/19 at 2321 by Callie Lucas RT Amended: Links added.
[2019-09-13] MEDS: PIPERACILLIN-TAZOB 2.25GM 50 ML IV SCH ×4 (01:14→17:56)
[2019-09-13 05:32] VITALS: BP 146/70
[2019-09-13] MEDS: LEVOTHYROXINE SODIUM 50 MCG TAB PO SCH (06:48)
[2019-09-13] MEDS: methylPREDNISolone SOD SUCC 125 MG/2 ML VL IV SCH ×3 (06:48→20:59)
[2019-09-13] MEDS: FUROSEMIDE 20 MG TAB PO SCH ×2 (06:49→17:55)
[2019-09-13 07:01] LABS: Calcium 9.4 mg/dL (8.5-10.1); Potassium 4.3 mmol/L (3.5-5.1)
[2019-09-13 07:05] LABS: BUN/Creatinine Ratio 39.2; Bilirubin, Total 0.2 mg/dL (0.2-1.0)
[2019-09-13] MEDS: ALBUTEROL SULF HFA 90MCG INH 200DOSE IN SCH ×3 (07:05→22:00)
[2019-09-13] MEDS: BUDESONIDE (INHALATION) 180 MCG IH IN SCH ×2 (07:05→22:00)
[2019-09-13 08:00] VITALS: BP 148/61
[2019-09-13] MEDS: ASCORBIC ACID 500 MG TAB PO SCH ×3 (10:00→21:06)
[2019-09-13] MEDS: Ensure HIGH Protein Vanilla 8oz Bottle PO SCH ×2 (10:19→12:58)
[2019-09-13] MEDS: ZINC SULFATE 220mg CAP or TAB PO SCH (10:20)
[2019-09-13] MEDS: POTASSIUM CHL 20 Meq TABLET PO SCH ×2 (10:20→21:06)
[2019-09-13] MEDS: METOCLOPRAMIDE HCL 10 MG TAB PO SCH ×2 (10:21→21:06)
[2019-09-13] MEDS: CLOPIDOGREL BISULFATE 75 MG TAB PO SCH (10:21)
[2019-09-13] MEDS: METOPROLOL SUCCINATE XL 50 MG TAB PO SCH (10:38)
[2019-09-13] MEDS: hydrALAZINE HCL 25 MG TAB PO SCH (10:38)
[2019-09-13] MEDS: DOXAZOSIN MESYL 2 MG TAB PO SCH (10:39)
[2019-09-13] MEDS: REMDESIVIR 100mg in NS 230ml DAILYx4DAYS (NO VENT) IV SCH (10:41)
[2019-09-13 12:00] VITALS: BP 152/69
--- NOTE | 2019-09-13 12:55 | NUR ---
Remdesivir Pre-vitals are 144/67, 87 bpm, 18R, 90% On 10L via NC. 15 min vitals are 152/69, 85bpm,20RR, 94% on 10l via NC. Post vitals are 178/85, 77bpm, 20RR, 94% on 10 L via NC. Patient is alert and oriented no s/s of distress noted, will continue to monitor q1hr and PRN.
--- NOTE | 2019-09-13 12:55 | NUR ---
Nutrition Followup Note Wt 54.1kg Pt is covid positive in the covid isolation wing. Pt is on a regular diet with fair po intake aeb pt with 59% po intake x 2 days per RN note. Pt with Ensure HP TID Est Energy needs: 5567-6839 kcals (25-30 kcal/kgBW) Est Protein needs: 50-55 gms/day (1.0-1.1 gm/kgBW) Will continue to monitor and reassess prn. Labs: BUN 49H, Creat 1.25H, Alb 2.0L, GLUC 134H BM: Pt with 4 BMs 8/3 per RN note Skin: BS 16 mod risk, full details in career and guidance counselor note. PES: Altered nutrition related lab values r/t current medical condition aeb hyperglycemia, severe hypoalbuminemia Comments: Will continue to monitor PO status, skin status, pertinent labs and weight trends. Will f/u in 3-5 days. 1) Continue to closely monitor pt PO intake to meet at least 75% of meals 2) Continue current plan of care Expected Outcomes/Goals: Pt appetite to meet at least 75% of meals Pt labs to improve
[2019-09-13] MEDS: cloNIDine HCL 0.1 MG TAB PO PRN (12:59)
[2019-09-13 15:48] LABS: Basophils # (auto) 0.1 10 ^3/uL (0-0.2); Basophils % (auto) 0.3 % (0.0-2.0); Eosinophils # (auto) 0 10 ^3/uL (0-0.8); Eosinophils % (auto) 0.2 % (0.0-7.0); Hematocrit 33.3 % (36.0-46.0); Hemoglobin 10.7 g/dL (12.2-16.2); Lymphocytes # (auto) 0.5 10 ^3/uL (0.4-5.4); Lymphocytes % (auto) 2.1 % (10.0-50.0); Mean Corpuscular Hemoglobin 28.7 pg (28.0-32.0); Mean Corpuscular Hgb Conc. 32.1 g/dL (32.0-36.0); Mean Corpuscular Volume 89.6 fL (80.0-100.0); Monocytes # (auto) 0.7 10 ^3/uL (0-1.3); Monocytes % (auto) 3.4 % (0.0-12.0); Neutrophils # (auto) 20.4 10 ^3/uL (1.6-8.6); Platelet Count (auto) 380 10^3/uL (140-450); Red Blood Cells 3.72 10^6/uL (4.0-5.20); White Blood Cell 21.8 10^3/uL (4.4-10.8)
[2019-09-13 17:00] VITALS: BP 125/55
--- NOTE | 2019-09-13 19:10 | NUR ---
Opening Shift Note Assumed care of patient, awake and alert. Patient verbalized a feeling of anxiety. Provided therapeutic communication to which the patient responded that her anxiety level decreased. Patient verbalized that she is not feeling any pain at this time. Instructed on POC and to call for assist PRN, will continue to monitor for changes Q1hr and PRN. Bed locked in lowest position, side rails up x 2, HOB elevated at least 30 degrees and call light is within reach.
--- NOTE | 2019-09-13 21:20 | NUR ---
Called/paged Dr. Salinas called. Orders obtained and verified. Will continue to monitor.
[2019-09-13 21:29] VITALS: BP 154/57
--- NOTE | 2019-09-13 22:30 | NUR ---
AT PT'S BEDSIDE PT IS ON 15 LPM OXYMIZER AND 15 LPM NRB, PT IS EXTREMELY ANXIOUS AND STATES SHE CANNOT BREATHE. FOUND BRENDAN RODRIGUEZ OUTSIDE PT'S ROOM. ASKED IF THERE WERE ANY FURTHER ORDERS FOR PT FROM MD SINGLETON. RBENDAN RODRIGUEZ STATED HE WAS STILL WAITING ON A REPLY FROM .
--- NOTE | 2019-09-13 22:32 | NUR ---
SPOKE WITH DR. SINGLETON. INFORMED HIM OF ABNORMAL ABG RESULTS. RESPIRATORY THERAPIST SPOKE WITH THE PHYSICIAN. RECEIVED ORDERS TO PLACE PATIENT ON BiPAP AND 4 L AND RE DRAW ABG WITHIN 30 MINUTES.
--- NOTE | 2019-09-13 22:33 | NUR ---
SPOKE WITH MD SINGLETON AFTER HE SPOKE WITH BRENDAN RODRIGUEZ TO VERIFY ORDERS. MD SINGLETON STATING TO PLACE PT ON 4 LPM VIA NC. EXPLAINED TO MD THAT PT RR WERE INCREASING AND PT'S SATURATION ARE IN THE 60S ON CURRENT O2 MODALITIES OF BOTH OXYMIZER AND NRB AT 15 LPM. PT CONDITION CONTINUED TO DETERIORATE WHILE ON PHONE WITH MD. INFORMED MD THAT PT'S STATUS NEEDS TO BE UPGRADED. MD INSISTING PT STILL NEEDS TO BE PLACED ON HIS VERBAL ORDER OF 4LPM VIA NC. NOTIFIED I WILL SPEAK WITH RT DIRECTOR AND DIRECTOR PEOPLES[employer]. RN REMAINS AT BEDSIDE.
--- NOTE | 2019-09-13 22:36 | NUR ---
PATIENT'S RESPIRATORY DISTRESS INCREASED. O2 SATURATION DROPPING TO 40% CODE ASSIST CALLED. SEE CODE ASSIST SHEET.
--- NOTE | 2019-09-13 22:38 | NUR ---
SPOKE WITH LEAD RT TO INFORM OF CURRENT SITUATION. BRENDAN RODRIGUEZ ON PHONE WITH MD SINGLETON AND STATED HE WANTED TO SPEAK WITH ME AGAIN FOR FURTHER ORDERS AND PLACE PT ON BIPAP. DR SINGLETON EXTREMELY UPSET ON THE PHONE. REENTERED PT'S ROOM AND FOUND PT'S SATURATIONS NOW IN THE 40S WITH MINIMAL CHEST RISE AND AGONAL RESPIRATIONS. INFORMED DR SINGLETON OF FURTHER CHANGE IN STATUS AND THE PT NOW IS UNRESPONSIVE. DR SINGLETON INSISTING ON NOW PLACING PT ON BIPAP. INFORMED DR SINGLETON THAT CODE ASSIST WILL NOW BE CALLED. STARTING ASSISTING VENTILATIONS WITH AMBUBAG WITH 100%. AWAITING ARRIVAL OF CODE ASSIST TEAM.
--- NOTE | 2019-09-13 22:50 | NUR ---
PT WAS SUCCESSFULLY INTUBATED BY JEROD RIVERA ON FIRST ATTEMPT. POSITIVE COLOR CHANGE AND BILAT B/S NOTED. PT TO BE MOVED TO ICU. PREPARING FOR TRANSFER.
--- NOTE | 2019-09-13 23:00 | NUR ---
TYRONE LANDA CALLED. PT BECAME VERY DIFFICULT TO VENTILATE WITH AMBUBAG, LOTS OF RESISTANCE TO BAGGING. O2 SATS DECREASING TO 50%. SERVICE OR WORK DISPATCHER RIVERA VERIFYING BILAT B/S. SATS NOT IMPROVING. SERVICE OR WORK DISPATCHER RIVERA ORDER TO EXTUBATE PT AT THIS TIME AND VENTILATE PT WITH AMBUBAG AND MASK, AND TO PREPARE FOR REINTUBATION. UPON SUCCESSFUL REINTUBATION ON FIRST ATTEMPT WITH POSITIVE COLOR CHANGE PT'S ETT WAS FILLING WITH THICK KIRKLAND SUBSTANCE. ETT WAS SUCTIONED, NOW EASIER TO VENTILATE, SATURATIONS INCREASED TO HIGH 90S. STAT CHEST XRAY OBTAINED AND CONFIRMED PLACEMENT POST CODE.
[2019-09-13] MEDS ORDERED: PROPOFOL 100 ML IV ONE (23:08)
--- NOTE | 2019-09-13 23:20 | NUR ---
REPORT GIVEN TO PRAVIN AND PATIENT TRANSFERRED TO ICU.
[2019-09-13 23:30] VITALS: BP 160/79
--- NOTE | 2019-09-13 23:30 | NUR ---
Arrival Note Received pt from floor, S/P code blue and intubated per report. Pt being bagged by RT transferred by charge HAT BLOCKER and house shiftman. Pt connected to ICU monitoring and ventilator. VS: temp: 96.4, HR 132, RESP: 27, SPO2 99%, AND B/P 160/79. Order for propofol. IV 20 g started to right and left FA. Unable to place NGT tube. Rectal thermometer probe placed. Copious thick gee secretions suctioned out of ET tube. Pt waking up and reaching for tube. Sedation increased. SEE IV SPREADSHEET for details.
[2019-09-14] VITALS (100 sets, daily range): BP systolic 62–167; BP diastolic 32–82
--- NOTE | 2019-09-14 | NUR ---
DR. Salinas at bedside and placed OGT. Proper placement auscultated and secured to ET tube.
[2019-09-14] MEDS ORDERED: NOREPINEPHRINE 8 MG/250ML KIT 250 ML IV ONE (00:25)
[2019-09-14] MEDS ORDERED: MIDAZOLAM DRIP 50 mg/50mL 50 ML IV ONE (00:28)
--- NOTE | 2019-09-14 00:30 | NUR ---
Updated daughter on pt status. Pt consented for central line if needed. All questions and concerns addressed at this time.
--- NOTE | 2019-09-14 00:45 | NUR ---
DR. Salinas spoke with daughter, DESIRAE, and made pt DNR. DNR signed in chart.
[2019-09-14] MEDS: PROPOFOL 100 ML IV SCH ×2 (00:50→17:41)
[2019-09-14] MEDS: PIPERACILLIN-TAZOB 2.25GM 50 ML IV SCH ×4 (01:00→18:43)
[2019-09-14] MEDS: NOREPINEPHRINE 8 MG/250ML KIT 250 ML IV SCH ×3 (01:30→18:25)
[2019-09-14] MEDS: MIDAZOLAM DRIP 50 mg/50mL 50 ML IV SCH ×2 (01:50→07:41)
--- NOTE | 2019-09-14 02:15 | NUR ---
Called results of ABG to Dr. Salinas. New orders received.
--- NOTE | 2019-09-14 02:31 | NUR ---
ATTEMPTED TO DECREASE FIO2 TO .40 PER MD SINGLETON ORDER PT UNABLE TO MAINTAIN SATURATION. PT DROPPED TO 81%, FIO2 INCREASED TO .60, SATURATION NOW AT 96%. BRENDAN COSTELLO AT BEDSIDE.
[2019-09-14] MEDS: ALBUTEROL SULF HFA 90MCG INH 200DOSE IN SCH (06:00)
[2019-09-14] MEDS: methylPREDNISolone SOD SUCC 125 MG/2 ML VL IV SCH ×3 (06:00→22:20)
[2019-09-14] MEDS: FUROSEMIDE 20 MG TAB PO SCH ×2 (06:00→18:15)
--- NOTE | 2019-09-14 07:00 | NUR ---
Respiratory note: RECEIVED PATIENT ON V3 V200 VENT ORALLY INTUBATED WITH A 7.5 ETT SECURED VIA SHIRA AT THE 24CM MARKING AT THE LIP, AND MECHANICALLY VENTILATED WITH THE CHARTED SETTINGS. SPO2 97%, LUNG SOUNDS DIM T/O. SKIN IS WARM/DRY TO THE TOUCH AND IS INTACT NEAR SHIRA SITE. THERE IS AN OGT IN PLACE AND SECURED TO THE ETT. NO EDEMA NOTED. NO NEW CXR TO ASSESS. PATIENT IS UNRESPONSIVE TO BOTH VERBAL/TACTILE STIMULI AND IS SEDATED ON PROPOFOL AND VERSED DRIPS. SHE IS RESTING COMFORTABLY AND TOLERATING VENT WELL, NO CHANGES MADE. VENT PLUGGED INTO RED OUTLET AND ALL ALARMS ARE SET AND AUDIBLE. WILL CONTINUE TO ASSESS PATIENT WELL VENTILATOR FUNCTION.
--- NOTE | 2019-09-14 07:30 | NUR ---
REPORT REPORT RECEIVED FROM JIM RNPRAVIN. VIEWED PT THROUGH GLASS SLIDING DOORS SHE IS IN ISOLATION FOR R/O COVID. . VSS. CONTINUE TO MONITOR.
[2019-09-14] MEDS: Ensure HIGH Protein Vanilla 8oz Bottle PO SCH ×3 (08:00→17:42)
[2019-09-14] MEDS: LEVOTHYROXINE SODIUM 50 MCG TAB PO SCH (08:16)
--- NOTE | 2019-09-14 08:45 | NUR ---
ASSESSMENT PT IN ISOLATION FOR R/O COVID. PT SEDATED AND INTUBATED. NO SPONTANEOUS MOVEMENT NOTED. PUPILS 3 AND SLUGGISH. ON THE VENTILATOR WITH SETTINGS OF: 7.5 FR ETT/24 AT THE LIP, TV 500, AC 18, 60% FIO2 AND PEEP OF 5. LUNGS CLEAR AND DIMINISHED THROUGHOUT. BLOODY THICK FLUID WITH ORAL SUCTIONING AND CREY FLUID FROM ETT. TELE SR [address] IN LEADS I AND II AND OCCASIONAL PAC. PALPABLE PULSES TO ALL EXTREMITIES. ABD SOFT WITH HYPOACTIVE BOWEL SOUNDS. OGT WITH +TER DRAINING YELLOW URINE. PT CURRENTLY RECEIVING VERSED AND DIPRIVAN FOR SEDATION AND ON LEVOPHED FOR BP SUPPORT. TURNED FOR COMFORT. BED IN LOW POSITION WITH SIDE RAILS UP FOR PT SAFETY. CONTINUE TO MONITOR.
--- NOTE | 2019-09-14 08:45 | NUR ---
PT TEACHING PT UNABLE TO BENEFIT FROM PT TEACHING AT THIS TIME SHE IS INTUBATED AND SEDATED. Addendum: 09/14/19 at 0944 by Dot Ann RN Amended: Links added.
[2019-09-14] MEDS: hydrALAZINE HCL 25 MG TAB PO SCH (10:00)
[2019-09-14] MEDS: METOPROLOL SUCCINATE XL 50 MG TAB PO SCH (10:00)
[2019-09-14] MEDS: ZINC SULFATE 220mg CAP or TAB PO SCH (10:27)
[2019-09-14] MEDS: ASCORBIC ACID 500 MG TAB PO SCH ×2 (10:28→22:20)
[2019-09-14] MEDS: METOCLOPRAMIDE HCL 10 MG TAB PO SCH ×2 (10:28→22:20)
[2019-09-14] MEDS: CLOPIDOGREL BISULFATE 75 MG TAB PO SCH (10:28)
[2019-09-14 10:32] LABS: Hemoglobin 10.9 g/dL (12.2-16.2)
[2019-09-14] MEDS: DOXAZOSIN MESYL 2 MG TAB PO SCH (10:32)
[2019-09-14 10:35] LABS: Hematocrit 35.4 % (36.0-46.0); Mean Corpuscular Hemoglobin 27.4 pg (28.0-32.0); Mean Corpuscular Hgb Conc. 30.7 g/dL (32.0-36.0); Mean Corpuscular Volume 89.1 fL (80.0-100.0); Platelet Count (auto) 442 10^3/uL (140-450); Red Blood Cells 3.97 10^6/uL (4.0-5.20)
[2019-09-14 10:51] LABS: White Blood Cell 48.8 10^3/uL (4.4-10.8)
[2019-09-14 10:53] LABS: Band Neutrophils % (manual) 0; Basophils % (manual) 0 (0.0-2.0); Blast Cells 0; Eosinophils % (manual) 0 (0-7); Metamyelocytes % 0; Myelocytes % 0; Potassium 4.5 mmol/L (3.5-5.1); Promyelocytes % 0; Reactive Lymphocytes 0
[2019-09-14 11:01] LABS: BUN/Creatinine Ratio 33.1; Calcium 9.4 mg/dL (8.5-10.1); Magnesium 2.5 mg/dL (1.6-2.6)
[2019-09-14 11:11] LABS: Lymphocytes % (manual) 2 (10.0-50.0); Monocytes % (manual) 6 (0-12)
--- NOTE | 2019-09-14 11:19 | NUR ---
assessment Patient is a 79 year old female who is on a vent in ICU. Per patient daughter Brigid prior to admission patient lived home with her and functioned with her assistance. Brigid is patients POA. Patient has an advanced directive on file. Patient has a fww and home 02 at 2.5 to 3L/min. Per Brigid she called 911 due to Shortness of breath. Brigid informed me patient got up to use the bathroom and didn't take her oxygen. Patient was off the oxygen too long and was having SOB. I informed Brigid that patients post discharge needs to be determined after extubation and prior to discharge. I will continue to monitor and follow up as appropriate. Brigid verbalized understanding. Addendum: 09/14/19 at 1126 by Divya MARRERO Amended: Links added.
--- NOTE | 2019-09-14 11:21 | NUR ---
CALLED DR SINGLETON AND LEFT A MESSAGE MAKING HIM AWARE OF WBC OF 48.8 AND PHARMACY RECOMMENDING TO ADD ZYVOX 600 MG IV BID.
--- NOTE | 2019-09-14 11:29 | NUR ---
MD/PHONE RECEIVED A PHONE CALL BACK FROM DR SINGLETON. MADE HIM AWARE OF WBC 48.8 AND RECEIVED ORDERS. WILL CARRY OUT ORDERS. Addendum: 09/14/19 at 1158 by Dot Ann RN POTASSIUM CHANGED TO EFFERVESCENT TABLET SO IT CAN BE ADMINISTERED BY OGT. WILL HOLD TODAY'S DOSE , PER , K 4.5.
[2019-09-14] MEDS: LINEZOLID 600MG/300ML 300 ML IV SCH ×2 (12:33→23:04)
[2019-09-14] MEDS: ACETYLCYSTEINE 10 %(100MG/ML) SOL 4ML NEB SCH ×2 (13:55→22:29)
[2019-09-14] MEDS: LEVALBUTEROL HCL 1.25 MG/3 ML NEB NEB SCH ×2 (13:55→22:29)
[2019-09-14] MEDS ORDERED: ALBUTEROL SULF 2.5 MG/0.5ML(0.5%) NEB SOLN NEB SCH (14:00)
--- NOTE | 2019-09-14 14:12 | NUR ---
Respiratory note: FIO2 DECREASED TO 40% AT THIS TIME. BRENDAN URBANO MADE AWARE OF CHANGE.
--- NOTE | 2019-09-14 14:50 | NUR ---
CALLED AND SPOKE WITH PT'S DAUGHTER, DESIRAE. I LET HER KNOW THAT HER MOTHER'S COVID TEST, DONE EARLIER THIS MORNING, CAME BACK NEGATIVE.
--- NOTE | 2019-09-14 18:52 | NUR ---
MD VISIT PT SEEN BY DR NUÑEZ. I UPDATED HIM ON THE PT'S CURRENT CONDITION AND LABS. HE MENTIONED THE POSSIBILITY OF DOING A BRONCHOSCOPY BUT WILL CHECK WITH DR SINGLETON.
--- NOTE | 2019-09-14 19:30 | NUR ---
REPORT RECEIVED, ASSUMED CARE.
--- NOTE | 2019-09-14 20:05 | NUR ---
DAUGHTER CALLED GAVE UPDATE AND EXPLAINED POC. ALL QUESTIONS AND CONCERNS ADDRESSED.
--- NOTE | 2019-09-14 20:33 | NUR ---
Patient bathe/linen change Patient given complete bath. Skin integrity assessed for any changes. Linens changed. Patient repositioned for comfort.
[2019-09-14] MEDS: BUDESONIDE (INHALATION) 0.5 MG/2 ML NEB NEB SCH (22:28)
[2019-09-15] VITALS (105 sets, daily range): BP systolic 87–173; BP diastolic 38–98
[2019-09-15] MEDS: PIPERACILLIN-TAZOB 2.25GM 50 ML IV SCH ×4 (01:00→17:25)
[2019-09-15] MEDS: MIDAZOLAM DRIP 50 mg/50mL 50 ML IV SCH (03:17)
[2019-09-15] MEDS: PROPOFOL 100 ML IV SCH (03:17)
--- NOTE | 2019-09-15 05:04 | NUR ---
DAUGHTER CALLED GAVE HER UPDATE ON HER MOM.
[2019-09-15] MEDS: methylPREDNISolone SOD SUCC 125 MG/2 ML VL IV SCH ×3 (06:12→22:00)
[2019-09-15] MEDS: LEVOTHYROXINE SODIUM 50 MCG TAB PO SCH (06:22)
[2019-09-15] MEDS: FUROSEMIDE 20 MG TAB PO SCH ×2 (06:23→17:25)
[2019-09-15] MEDS: ACETYLCYSTEINE 10 %(100MG/ML) SOL 4ML NEB SCH ×3 (06:27→23:05)
[2019-09-15] MEDS: LEVALBUTEROL HCL 1.25 MG/3 ML NEB NEB SCH ×3 (06:27→23:05)
[2019-09-15] MEDS: BUDESONIDE (INHALATION) 0.5 MG/2 ML NEB NEB SCH ×2 (06:27→23:05)
--- NOTE | 2019-09-15 08:30 | NUR ---
Family updated on pt status Family of WESLY GILLIL[place] updated on patient's status and condition. All questions and concerns addressed. Nadia, verbalized understanding.
--- NOTE | 2019-09-15 08:34 | NUR ---
SEDATION VACATION SEDATION DECREASED TO ASSESS LEVEL OF SEDATION. WITHIN 30MIN OF DECREASE MEDICATION, PATIENT NOTED TO BECOME TACHYCARDIC, RR NOTED 27BREATHS PER MIN AND PATIENTS HAND REACHING UP FOR ETT, CALMING MEASURES AND DISTRACTIONS ATTEMPTED. SEDATED INCREASED FOR COMFORT.
[2019-09-15] MEDS: METOPROLOL SUCCINATE XL 50 MG TAB PO SCH (08:52)
[2019-09-15] MEDS: hydrALAZINE HCL 25 MG TAB PO SCH (08:52)
[2019-09-15] MEDS: DOXAZOSIN MESYL 2 MG TAB PO SCH (08:53)
--- NOTE | 2019-09-15 09:17 | NUR ---
paged Dr. Salinas paged re: clarification if he would like for Dr. Nelson to perform bedside bronchoscopy on patient. Awaiting callback. Plavix held until further orders.
--- NOTE | 2019-09-15 10:33 | NUR ---
DR. NUÑEZ AWARE HAS AGREED TO BRONCHOSCOPY. ARRANGING TIME WITH OR TEAM FOR TODAY. AWARE PATIENT HAS BEEN ON PLAVIX WITH TODAY'S DOSE ON HOLD. PATIENT TO REMAIN NPO.
--- NOTE | 2019-09-15 10:49 | NUR ---
PROCEDURE DR. NUÑEZ HAS ARRANGED TO PERFORM BEDSIDE BRONCHOSCOPY AT 3:30-4:00. R.T AWARE. CONSENTS TO BE OBTAINED.
--- NOTE | 2019-09-15 11:00 | NUR ---
NURSE AT BEDSIDE RN AT BEDSIDE TO INSERT MIDLINE.
[2019-09-15 11:26] LABS: Basophils # (auto) 0 10 ^3/uL (0-0.2); Eosinophils # (auto) 0 10 ^3/uL (0-0.8); Hematocrit 31.3 % (36.0-46.0); Lymphocytes # (auto) 0.2 10 ^3/uL (0.4-5.4); Lymphocytes % (auto) 0.8 % (10.0-50.0); Mean Corpuscular Hemoglobin 28.4 pg (28.0-32.0); Mean Corpuscular Hgb Conc. 31.9 g/dL (32.0-36.0); Mean Corpuscular Volume 89.1 fL (80.0-100.0); Monocytes # (auto) 0.8 10 ^3/uL (0-1.3); Monocytes % (auto) 3.1 % (0.0-12.0); Neutrophils # (auto) 24.3 10 ^3/uL (1.6-8.6); Neutrophils % (auto) 96.1 % (37.0-80.0); Platelet Count (auto) 406 10^3/uL (140-450); Red Blood Cells 3.51 10^6/uL (4.0-5.20); Red Cell Distribution Width 15.1 % (11.8-14.3); White Blood Cell 25.3 10^3/uL (4.4-10.8)
[2019-09-15 11:36] LABS: INR 1.08 (0.9-1.15)
--- NOTE | 2019-09-15 11:45 | NUR ---
Midline Placement: 18g/10cm midline inserted via right basilic vein using Ultrasound. Sterile technique utilized. Blood return obtained from lumen and flushed easily with NS using proper technique. Midline secured with stat lock; biodisc and occlusive dressing applied. Primary RN notified. Midline lot #[id number]
[2019-09-15 11:48] LABS: Potassium 4.3 mmol/L (3.5-5.1)
[2019-09-15 11:52] LABS: BUN/Creatinine Ratio 29.9; Calcium 9.2 mg/dL (8.5-10.1)
[2019-09-15] MEDS: LINEZOLID 600MG/300ML 300 ML IV SCH ×2 (12:25→23:09)
[2019-09-15] MEDS ORDERED: EPINEPHrine HCL 1 MG/10 ML SYRG IV ONE (12:40)
[2019-09-15] MEDS ORDERED: SODIUM CHLORIDE LOCK 0 ML ONE (15:19)
[2019-09-15] MEDS ORDERED: LIDOCAINE HCL 2% TOP JELLY 5ML TOP ONE (15:19)
[2019-09-15] MEDS ORDERED: EPINEPHrine HCL 1 MG/1 ML AMP ONE (15:19)
[2019-09-15] MEDS ORDERED: LIDOCAINE 2%HCL (LOCAL ANESTH.) INJ 20ML MDV ONE (15:19)
[2019-09-15] MEDS ORDERED: ACETYLCYSTEINE 20%(200MG/ML) SOL 4ML ONE (15:47)
--- NOTE | 2019-09-15 16:02 | NUR ---
Procedure Dr. Nelson at bedside with OR team. Bedside procedure performed. No incidence occurred. See v/s. Patient tolerated well. Md notes.
--- NOTE | 2019-09-15 16:12 | NUR ---
FAMILY DR. NUÑEZ UPDATED RADHA, DAUGHTER. QUESTIONS AND CONCERNS ADDRESSED. SEE MD NOTES.
[2019-09-15] MEDS: METOCLOPRAMIDE HCL 10 MG TAB PO SCH ×2 (17:25→22:00)
[2019-09-15] MEDS: ASCORBIC ACID 500 MG TAB PO SCH ×2 (17:25→22:00)
[2019-09-15] MEDS: ZINC SULFATE 220mg CAP or TAB PO SCH (17:25)
[2019-09-15] MEDS: POTASSIUM EFFERVESENT TAB 25 MEQ GT SCH (17:34)
[2019-09-15] MEDS: CLOPIDOGREL BISULFATE 75 MG TAB PO SCH (17:34)
--- NOTE | 2019-09-15 20:00 | NUR ---
OPEN ASSUMED CARE OF FEMALE PT ORALLY INTUBATED. PT SEDATED ON DIPRIVAN GTT 10 CG/KG/MIN, AND VERSED GTT 2 MG/HR. SEDATION INFUSING INTO R. UPPER ARM MIDLINE. PT GRIMACES TO TACTILE STIMULI. OTHERWISE NON RESPONSIVE. SR ON DIESEL ENGINE I PIPE FITTER. OGT IN PLACE CLAMPED. PLACEMENT VERIFIED. PT WITH MULTIPLE PERIPHERAL IV'S SEE IV ASSESSMENT SPREADSHEET. PT WITH PRESSURE ULCERS X 2 TO EITHER SIDE OF SACRUM. OPTIFOAM GENTLE NON ADHERENT DRESSING IN PLACE OVER ZGAURD BARRIER OINTMENT. PT ON SPECIALTY AIR MATTRESS. PILLOWS USED TO OFFLOAD BONY PROMINENCES AND CHRISTI HEELS. RANGEL TO GRAVITY DRAINING CLEAR YELLOW URINE. BED IN LOWEST LOCKED POSITION. SIDE RAILS UP X 2. HOB ELEVATED 35 DEGREES. NO INDICATION OF PAIN OBSERVED. PT IN FULL VIEW OF RN STATION. WILL CONTINUE TO MONITOR.
--- NOTE | 2019-09-15 20:10 | NUR ---
FAMILY UPDATE PT DAUGHTER RADHA CALLED UNIT FOR UPDATE ON PT CONDITION. AFTER PASSWORD FOR PHONE GIVEN. UPDATE PROVIDED. ALL QUESTIONS AND CONCERNS ADDRESSED.
--- NOTE | 2019-09-15 20:30 | NUR ---
GI/BATH LINEN CHANGE PT HAD MOD SIZED LOOSE BROWN BM. PT CLEANSED WITH CHLORHEXIDINE WIPES. NEW GOWN AND NEW LINEN PROVIDED.
[2019-09-16] VITALS (80 sets, daily range): BP systolic 83–193; BP diastolic 38–98
[2019-09-16] MEDS: MIDAZOLAM DRIP 50 mg/50mL 50 ML IV SCH
[2019-09-16] MEDS: NOREPINEPHRINE 8 MG/250ML KIT 250 ML IV SCH (00:50)
[2019-09-16] MEDS: PIPERACILLIN-TAZOB 2.25GM 50 ML IV SCH ×4 (01:17→17:54)
--- NOTE | 2019-09-16 02:00 | NUR ---
GI/BED BATH/LINEN CHANGE PT HAD SMALL LOOSE BM. GIVEN BED BATH AND PARTIAL LINEN CHANGE. OPTIFOAM GENTLE SACRAL DRESSING TO SACRUM WOUNDS CHANGED.
[2019-09-16] MEDS: DexMEDEtomidine 400 MCG in D5W 5% 96 ML IV SCH (05:15)
[2019-09-16] MEDS: FUROSEMIDE 20 MG TAB PO SCH ×2 (05:41→17:47)
[2019-09-16] MEDS: methylPREDNISolone SOD SUCC 125 MG/2 ML VL IV SCH ×3 (05:47→21:57)
[2019-09-16] MEDS: LEVALBUTEROL HCL 1.25 MG/3 ML NEB NEB SCH ×3 (06:30→22:28)
[2019-09-16] MEDS: ACETYLCYSTEINE 10 %(100MG/ML) SOL 4ML NEB SCH ×3 (06:30→22:28)
[2019-09-16] MEDS: BUDESONIDE (INHALATION) 0.5 MG/2 ML NEB NEB SCH ×2 (06:30→22:28)
--- NOTE | 2019-09-16 06:30 | NUR ---
RT NOTE: FIO2 DECREASED TO 35%
[2019-09-16] MEDS: LEVOTHYROXINE SODIUM 50 MCG TAB PO SCH (06:35)
--- NOTE | 2019-09-16 07:30 | NUR ---
REPORT OBTAINED PATIENT REMAINS INTUBATED/ MODERATELY SEDATED. TOLERATING VENTILATOR WELL. PLANS FOR CPAP TRIAL. SEE PHYSICAL ASSESSMENT/ IV SPREADSHEET.
--- NOTE | 2019-09-16 07:44 | NUR ---
RT NOTE: FIO2 INCREASED TO 40%. RN AWARE.
--- NOTE | 2019-09-16 09:00 | NUR ---
SEDATION VACATION IN PLACE FOR POSSIBLE CPAP TRIAL. SEE IV SPREADSHEET.
--- NOTE | 2019-09-16 09:54 | NUR ---
RT NOTE: FIO2 DECREASED BACK TO 35%. SPO2 96%. WILL CONTINUE TO MONITOR.
[2019-09-16] MEDS: hydrALAZINE HCL 25 MG TAB PO SCH (10:00)
[2019-09-16] MEDS: DOXAZOSIN MESYL 2 MG TAB PO SCH (10:00)
[2019-09-16] MEDS: ASCORBIC ACID 500 MG TAB PO SCH ×2 (10:00→22:00)
[2019-09-16] MEDS: METOCLOPRAMIDE HCL 10 MG TAB PO SCH ×2 (10:00→22:00)
[2019-09-16] MEDS: POTASSIUM EFFERVESENT TAB 25 MEQ GT SCH (10:00)
[2019-09-16] MEDS: METOPROLOL SUCCINATE XL 50 MG TAB PO SCH (10:00)
[2019-09-16] MEDS: CLOPIDOGREL BISULFATE 75 MG TAB PO SCH (10:00)
[2019-09-16] MEDS: ZINC SULFATE 220mg CAP or TAB PO SCH (10:00)
[2019-09-16 10:43] LABS: Basophils # (auto) 0.1 10 ^3/uL (0-0.2); Basophils % (auto) 0.4 % (0.0-2.0); Eosinophils # (auto) 0 10 ^3/uL (0-0.8); Hematocrit 29.7 % (36.0-46.0); Hemoglobin 9.6 g/dL (12.2-16.2); Lymphocytes # (auto) 0.2 10 ^3/uL (0.4-5.4); Lymphocytes % (auto) 0.8 % (10.0-50.0); Mean Corpuscular Hemoglobin 28.5 pg (28.0-32.0); Mean Corpuscular Hgb Conc. 32.2 g/dL (32.0-36.0); Mean Corpuscular Volume 88.5 fL (80.0-100.0); Monocytes # (auto) 0.8 10 ^3/uL (0-1.3); Monocytes % (auto) 4.1 % (0.0-12.0); Neutrophils # (auto) 17.6 10 ^3/uL (1.6-8.6); Neutrophils % (auto) 94.7 % (37.0-80.0); Platelet Count (auto) 314 10^3/uL (140-450); Red Blood Cells 3.35 10^6/uL (4.0-5.20); Red Cell Distribution Width 14.8 % (11.8-14.3); White Blood Cell 18.6 10^3/uL (4.4-10.8)
--- NOTE | 2019-09-16 10:58 | NUR ---
Dr. Brad hall Md paged to notify patient is a possible cpap trial. Patient is listed as a DNR and daughter Nadia is concerned patient will have high anxiety and not do well. Informed daughter that patient is on Precedex for alleviation of anxiety and will be closely monitored. paged to speak with daughter as she is stating patients condition over several years. Awaiting callback.
[2019-09-16 11:01] LABS: Potassium 3.4 mmol/L (3.5-5.1)
--- NOTE | 2019-09-16 11:02 | NUR ---
Nutrition Followup Note Wt 57.0 kg Pt was covid positive in the covid wing. Pt now intubated and sedated in ICU with propofol running at 1.725 ml/hr providing 46 kcal from lipids. Pt NPO with no diet order. Prior to NPO diet order and intubated pt consumed 58% of po intake 8/ per RN note. Pt is possible CPAP trial 09/15 per RN note. Consider alternate nutrition if pt continues to be NPO. If GI is accessible consider Osmolite 1.2 @ 40 ml/hr Est Energy needs: 2710-4684 kcals (25-30 kcal/kgBW) Est Protein needs: 50-55 gms/day (1.0-1.1 gm/kgBW) Will continue to monitor and reassess prn. Labs: BUN 52H, Creat 1.74H, GLUC 188, Alb 2.0L BM: Pt with 3 BMs 09/15 per RN note Skin: BS 11 high risk, full details in resident care assistant note. PES: Altered nutrition related lab values r/t current medical condition aeb hyperglycemia, severe hypoalbuminemia Inadequate oral intake r/t current medical condition aeb pt with NPO diet order Comments: Will continue to monitor PO status, skin status, pertinent labs and weight trends. Will f/u in 2-3 days. 1) Consider alternate nutrition if pt continues to be NPO >48 hours 2) advance diet as medically feasible 3) Continue current plan of care Expected Outcomes/Goals: Pt to receive alternate nutrition or pt diet to advance Pt appetite to meet at least 75% of meals Pt labs to improve
[2019-09-16 11:03] LABS: BUN/Creatinine Ratio 29.8
[2019-09-16] MEDS: LINEZOLID 600MG/300ML 300 ML IV SCH (12:00)
--- NOTE | 2019-09-16 14:30 | NUR ---
DR. SINGLETON AT BEDSIDE PRIMARY NURSE OUT OF UNIT. CHARGE NURSE COVERING STATING DR. SINGLETON WAS A BEDSIDE, STATED TO CONTINUE WITH CPAP FOR EXTUBATION.
--- NOTE | 2019-09-16 15:00 | NUR ---
PAGED DR. SINGLETON REPAGED TO CALL AND UPDATE RADHA, DAUGHTER ON CPAP TRIAL AND PATIENTS CONDITION.
--- NOTE | 2019-09-16 15:31 | NUR ---
Neuro Patient opening eyes to voice, following commands. RR noted at 28bt/min hr sr with pacs 113 bp 175/86 pox 95%. Precedex in place for comfort.
--- NOTE | 2019-09-16 16:12 | NUR ---
FAMILY DAUGHTER RADHA UPDATED ON PATIENTS STATUS. RADHA SPOKE WITH DR. SINGLETON RE: CPAP TRIAL AND PATIENTS CONDITION. QUESTIONS AND CONCERNS ADDRESSED. DAUGHTER REQUESTED WITH DR. ARELI MCGILL ADVISING PATIENT TO NOT COME IN DUE TO HER OWN COMORBIDITIES, DAUGHTER AGREED. RADHA AWARE PATIENT IS CALM AND AWAKE AT THIS TIME AND PATIENT IS TO BE PLACED ON CPAP.
--- NOTE | 2019-09-16 16:30 | NUR ---
RT NOTE: CALLED BY RN THAT DR SINGLETON GAVE THE OK TO START CPAP TRIALS AND THAT DAUGHTER HAS STATED THAT IF WE ARE SUCCESSFUL AT EXTUBATING PT, SHE WANTS HER TO BE A DNI. ABG HAS BEEN ORDERED FOR 1HR. PT IS TOLERATING CPAP AT THIS TIME AND ACKNOWLEDGES THAT SHE UNDERSTANDS WHAT THE PLAN FOR EXTUBATION IS. RN AWARE OF CHANGE. WILL PASS ONTO NOC SHIFT.
[2019-09-16] MEDS ORDERED: POTASSIUM CHL 20MEQ/100ML 100 ML IV ONE (17:15)
--- NOTE | 2019-09-16 17:48 | NUR ---
PAGED PAGED TO NOTIFY PATIENT HAS PO LASIX AND PATIENT IS CURRENTLY ON CPAP TRIAL. PAGED TO DETERMINE IF OK TO CHANGE TO IV LASIX AT THIS TIME. AWAITING CALLBACK.
--- NOTE | 2019-09-16 17:50 | NUR ---
INGE OBTAINED FROM [facility].
--- NOTE | 2019-09-16 18:00 | NUR ---
WEANING PARAMETER: VITAL CAPACITY THREE ATTEMPTS: 256mls, 396mls, 472mls. MIP THREE ATTEMPTS: -[id number], -[id number], -[id number]. RSBI: [id number]
--- NOTE | 2019-09-16 18:08 | NUR ---
R.T AT BEDSIDE PERFORMING WEANING PARAMETERS.
[2019-09-16] MEDS ORDERED: FUROSEMIDE 20 MG/2 ML VIAL ONE (18:23)
--- NOTE | 2019-09-16 18:29 | NUR ---
DR. NUÑEZ AT BEDSIDE. NEW ORDER FOR IV LASIX X1. ORDERS TO EXTUBATE. MD AWARE DAUGHTER HAS AGREED TO MODIFIED DNR- BIPAP ONLY. R.T AWARE. PATIENT TO BE PLACED ON HIGH FLOW.
[2019-09-16] MEDS ORDERED: FUROSEMIDE 20 MG/2 ML VIAL IV ONE (18:30)
--- NOTE | 2019-09-16 18:40 | NUR ---
EXTUBATED PATIENT ANSWERING SIMPLE QUESTIONS, EYES OPEN SPONTANEOUSLY. EXTUBATED BY RT AT BEDSIDE. NO STRIDOR NOTED, PATIENT PLACED ON HIGH FLOW 35L/ 40% FI02. POX 94%. NO ACCESSORY MUSCLE USE NOTED. PATIENT IN HIGH FOWLERS WITH ASPIRATION PRECAUTIONS IN PLACE. WILL CONTINUE TO MONITOR.
--- NOTE | 2019-09-16 18:41 | NUR ---
Respiratory note: EXTUBATED PT AND PLACED DIRECTLY ON HIGH FLOW NASAL CANNULA UNIT ORDERED. NO STRIDOR HEARD. HFNC UNIT CONNECTED TO O2 AND MEDICAL AIR WALL SOURCE. TOBIAS HEATER CONNECTED TO RED OUTLET, CM WATER PLACED, UNCLAMPED, AND NO LEAKS NOTED. HEATER ALARMS ARE AUDIBLE. AMBU BAG AND MASK AT BEDSIDE. NO FACIAL BREAKDOWN NOTED PRIOR TO PLACEMENT. PT TOLERATING WELL ALREADY SPEAKING. REMINDED PT TO CONSERVE ENERGY AT THIS TIME AND REFRAIN FROM TALKING TO MINIMIZE STRIDOR OR SOB OCCURRENCE. PTS CURRENT TEMP READING 98.8F. RT NAME AND PAGER ASSIGNMENT WRITTEN ON PTS ROOM BOARD WILL CONTINUE TO MONITOR. BRENDAN CARO AT BEDSIDE AND AWARE OF ALL CHANGES.
--- NOTE | 2019-09-16 19:20 | NUR ---
REPORT GIVEN TO PRAVEEN CARDONA. UPDATED ON PLAN OF CARE AND UPDATED CODE STATUS. PT VSS ON HIGH FLOW. CALL LIGHT AT REACH, BED ALARM ON, BED IN LOWEST POSITION. DAUGHTER RADHA UPDATED ON PATIENTS CURRENT STATUS. QUESTIONS AND CONCERNS ADDRESSED.
[2019-09-16] MEDS ORDERED: cloNIDine 0.1 mg/24hr 7 DAY PATCH TD SCH (22:00)
--- NOTE | 2019-09-16 22:28 | NUR ---
Respiratory note: AT BEDSIDE FOR HFNC CHECK AND MED NEB TX. TX GIVEN INLINE VIA AEROGEN. NO ADVERSE REACTION NOTED. BS ARE FINE COURSE. CURRENT TEMP IS 97.9F. WILL CONTINUE TO MONITOR.
[2019-09-17] VITALS (19 sets, daily range): BP systolic 142–190; BP diastolic 65–92
[2019-09-17] MEDS: NOREPINEPHRINE 8 MG/250ML KIT 250 ML IV SCH (00:50)
[2019-09-17] MEDS: PROPOFOL 100 ML IV SCH (00:50)
[2019-09-17] MEDS: PIPERACILLIN-TAZOB 2.25GM 50 ML IV SCH ×4 (01:00→20:44)
[2019-09-17] MEDS: MORPHINE SULF INJ 2 MG/ML SYRINGE 1ML IV PRN ×3 (01:38→06:44)
--- NOTE | 2019-09-17 02:16 | NUR ---
Respiratory note: AT BEDSIDE FOR HFNC CHECK. PT COMFORTABLY RESTING. CURRENT TEMP IS 97.9F. WILL CONTINUE TO MONITOR.
[2019-09-17] MEDS: DexMEDEtomidine 400 MCG in D5W 5% 96 ML IV SCH (05:00)
[2019-09-17] MEDS: methylPREDNISolone SOD SUCC 125 MG/2 ML VL IV SCH ×3 (06:00→22:38)
[2019-09-17] MEDS: LEVALBUTEROL HCL 1.25 MG/3 ML NEB NEB SCH ×3 (06:00→22:50)
[2019-09-17] MEDS: ACETYLCYSTEINE 10 %(100MG/ML) SOL 4ML NEB SCH ×3 (06:00→22:50)
[2019-09-17] MEDS: BUDESONIDE (INHALATION) 0.5 MG/2 ML NEB NEB SCH ×2 (06:00→22:50)
--- NOTE | 2019-09-17 06:18 | NUR ---
Pt's bp started to become elevated @1999. Dr. Salinas made aware once sbp became 189 @2100. No PRN's ordered. Clonidine patch ordered. No significant change to bp. Dr. Salinas was paged again. Awaiting response. Pt stated she was having back pain@0200. According to her daughter the pain is chronic. Morphine was administered to pt. Pain was relieved per pt. Sbp's began to decline to 160's. Pt alert and watching TV. Will continue to monitor. Addendum: 09/17/19 at 0623 by Sandie Mariano RN Pt had 1 BM overnight.
[2019-09-17] MEDS ORDERED: PIPERACILLIN-TAZOB 3.375GM 100 ML IV ONE (06:46)
[2019-09-17] MEDS: LEVOTHYROXINE SODIUM 50 MCG TAB PO SCH (07:00)
[2019-09-17] MEDS: ASCORBIC ACID 500 MG TAB PO SCH ×2 (10:00→22:39)
[2019-09-17] MEDS: ZINC SULFATE 220mg CAP or TAB PO SCH (10:00)
[2019-09-17] MEDS: POTASSIUM EFFERVESENT TAB 25 MEQ GT SCH (10:00)
[2019-09-17] MEDS: hydrALAZINE HCL 25 MG TAB PO SCH (10:00)
[2019-09-17] MEDS: METOCLOPRAMIDE HCL 10 MG TAB PO SCH ×2 (10:00→22:39)
[2019-09-17] MEDS: DOXAZOSIN MESYL 2 MG TAB PO SCH (10:00)
[2019-09-17] MEDS: CLOPIDOGREL BISULFATE 75 MG TAB PO SCH (10:00)
[2019-09-17] MEDS: METOPROLOL SUCCINATE XL 50 MG TAB PO SCH (10:00)
--- NOTE | 2019-09-17 10:27 | NUR ---
Respiratory note: TOOK PATIENT OFF HFNC AND PLACED PT ON 4L N/C. SPO2 97% NO DISTRESS NOTED.
[2019-09-17] MEDS: FUROSEMIDE 20 MG TAB PO SCH ×2 (11:58→20:46)
[2019-09-17] MEDS: LINEZOLID 600MG/300ML 300 ML IV SCH ×2 (12:00)
--- NOTE | 2019-09-17 12:34 | NUR ---
WOUND CARE NOTE: Wound care in to see patient for reevaluation of sacral wounds that are noted present on admission. Patient has been extubated. She continue resting on air mattress in ICU Rm. 103. Patient is awake, alert and able to verbalize needs. Patient is in no stated pain at this time. She needs assistance in turning and repositioning and her Erasmo score is 12. Skin/wound assessment done with the assistance of charge nurse, BRENDAN Osorio. Patient's Rt (0.8x1.5cm) and Lt (0.5x1cm) sacrum continue to display with Stage 3 pressure injury. L sacral wound is covered with thin brown scab, Rt sacral wound is pale pink with yellow slough,no measurable depth. Bernadette wound is pink and bright red, scant serous drainage noted, no odor noted. Patient noted with smear of feces. Bernadette care give and cleansed sacral wounds. New photograph of wounds are taken for reference. Applied Thera honey gauze to open wounds and covered with Opti foam sacral dressing. Patient tolerated well, repositioned for comfort facing her Lt side, redistributed pressure points with pillows. BRENDAN Osorio at bedside. RECOMMENDATION: Continuation of all wound care orders prescribed by MD, continue with skin/wound plan of care, continue monitoring by wound care while patient is hospitalized. Addendum: 09/17/19 at 1550 by Michelle Ramsey RN Amended: Links added.
--- NOTE | 2019-09-17 16:05 | NUR ---
Respiratory note: FOUND PATIENT ON 6L NC, WITH AN SPO2 OF 70% GURGLING, HR WAS IN THE 170'S. I ASKED RN NICOLASA WHY THE PATIENT WAS DECLINING. HE STATED THAT SHE MOST LIKELY ASPIRATED WHEN MEDS WHERE GIVEN. HE STATED SHE INSISTED ON DRINKING WATER.
[2019-09-17 17:34] LABS: Hematocrit 37.3 % (36.0-46.0); Hemoglobin 11.6 g/dL (12.2-16.2); Mean Corpuscular Hemoglobin 27.9 pg (28.0-32.0); Mean Corpuscular Volume 90.1 fL (80.0-100.0); Platelet Count (auto) 439 10^3/uL (140-450); Red Blood Cells 4.14 10^6/uL (4.0-5.20); Red Cell Distribution Width 15.5 % (11.8-14.3); White Blood Cell 26.3 10^3/uL (4.4-10.8)
[2019-09-17 17:46] LABS: Band Neutrophils % (manual) 0; Basophils % (manual) 0 (0.0-2.0); Blast Cells 0; Eosinophils % (manual) 0 (0-7); Metamyelocytes % 0; Myelocytes % 0; Promyelocytes % 0; Reactive Lymphocytes 0
[2019-09-17 17:52] LABS: BUN/Creatinine Ratio 29.1; Calcium 9.2 mg/dL (8.5-10.1); Potassium 3.8 mmol/L (3.5-5.1)
[2019-09-17 19:27] LABS: Lymphocytes % (manual) 1 (10.0-50.0); Monocytes % (manual) 5 (0-12)
--- NOTE | 2019-09-17 19:28 | NUR ---
Opening Shift Note Assumed care of patient, awake and alert x 4 but voice is very muffled by throat constriction (see history) and BiPAP mask. Bed is in lowest position and locked. Call light within reach. Board updated. No S/S of distress/SOB or pain. Instructed on POC and to call for assist PRN, will continue to monitor for changes Q1hr and PRN.
[2019-09-17] MEDS ORDERED: KETOROLAC TROMETH 30 MG/ML 1ML VIAL IV PRN (21:45)
--- NOTE | 2019-09-17 21:48 | NUR ---
Spoke to patient's daughter and gave a brief update after confirming password.
[2019-09-17] MEDS: KETOROLAC TROMETH 30 MG/ML 1ML VIAL IV PRN (22:47)
[2019-09-17] MEDS: cloNIDine HCL 0.1 MG TAB PO PRN (22:48)
--- NOTE | 2019-09-17 23:52 | NUR ---
Paged MD Salinas to notify him of elevated BP despite clonidine administration (189/92) and to request if patient can be transferred to [facility]. Awaiting call back.
[2019-09-18] VITALS (37 sets, daily range): BP systolic 129–203; BP diastolic 50–100
--- NOTE | 2019-09-18 00:16 | NUR ---
Ghulam MCGILL again. BP is now 203/100 with MAP of 114. Patient taken off BiPAP as she told us it was too uncomfortable and tried on high flow oxygen in an attempt to calm her down 35 l/60%. Patient's oxygen saturation is now 95% and steady.
--- NOTE | 2019-09-18 00:30 | NUR ---
BP reassessment: 189/88.
--- NOTE | 2019-09-18 00:59 | NUR ---
MD Salinas caleld back with orders: 1) Decrease high flow oxygen from 60% at 35 L to 35% at 35 L, 2) Clonidine 0.2 mg TD patch x one, 3) ABG for 0200, one hour after oxygen change. Orders repeated, verified, and placed.
--- NOTE | 2019-09-18 01:00 | NUR ---
PER DR SINGLETON'S TELEPHONE ORDER TO ANKIT CARDONA. FIO2 WAS DECREASED TO 35% AND A FOLLOW UP ABG TO BE OBTAINED.
[2019-09-18] MEDS ORDERED: cloNIDine 0.2 mg/24hr 7DAY PATCH TD ONE ×2 (01:15→01:30)
--- NOTE | 2019-09-18 01:26 | NUR ---
Paged MD Salinas to notify that patient's oxygen saturation has dropped to 72% on 35% of 35 L high flow. Patient agitated and keeps asking compulsively for water. ABG to be taken shortly. RT states he cannot change MD Salinas's direct order without notification of .
--- NOTE | 2019-09-18 01:40 | NUR ---
PT TO ROOM PT'S SATS ARE IN LOW 70s. ABG WAS OBTAINED AND FIO2 INCREASED TO 50% PER DR NUÑEZ TELEPHONE ORDER TO KEEPS SATS 90% AND ABOVE. DR SINGLETON PAGED MULTIPLE TIMES WITH NO RESPONSE.
--- NOTE | 2019-09-18 01:41 | NUR ---
Attempted to Call MD Salinas on personal phone number. No response. Patient's oxygen saturation is now 92% on 60% of 35 L.
[2019-09-18] MEDS: PIPERACILLIN-TAZOB 2.25GM 50 ML IV SCH ×4 (01:57→18:45)
--- NOTE | 2019-09-18 02:22 | NUR ---
Paged MD Salinas to notify of ABG results and change to oxygenation. Patient now on 60%, 36 L high flow.
--- NOTE | 2019-09-18 03:44 | NUR ---
Paged MD Salinas once more to notify him that BP is now 181/85 after clonidine patch administration and to attempt to notify of ABG results and subsequent high flow increase. Awaiting call back.
--- NOTE | 2019-09-18 04:06 | NUR ---
Patient refused to turn. I offered to help turn and she said "Go away, whatever it is go away and leave me alone." I attempted to educate patient on importance of turning q 2 hrs to prevent skin breakdown but she still refused.
[2019-09-18] MEDS: methylPREDNISolone SOD SUCC 125 MG/2 ML VL IV SCH ×3 (06:27→22:07)
[2019-09-18] MEDS: LEVOTHYROXINE SODIUM 50 MCG TAB PO SCH (06:27)
[2019-09-18] MEDS: FUROSEMIDE 20 MG TAB PO SCH ×2 (06:30→17:19)
[2019-09-18] MEDS: cloNIDine HCL 0.1 MG TAB PO PRN (06:31)
--- NOTE | 2019-09-18 06:32 | NUR ---
Patient refused to allow me to change linen, gown, or optifoam to sacrum. Patient requested female staff do this.
[2019-09-18 08:44] LABS: Hematocrit 31.7 % (36.0-46.0); Hemoglobin 10.3 g/dL (12.2-16.2); Mean Corpuscular Hemoglobin 28.9 pg (28.0-32.0); Mean Corpuscular Hgb Conc. 32.6 g/dL (32.0-36.0); Mean Corpuscular Volume 88.9 fL (80.0-100.0); Platelet Count (auto) 300 10^3/uL (140-450); Red Blood Cells 3.57 10^6/uL (4.0-5.20); Red Cell Distribution Width 14.9 % (11.8-14.3); White Blood Cell 24.1 10^3/uL (4.4-10.8)
[2019-09-18 08:46] LABS: Band Neutrophils % (manual) 0; Basophils % (manual) 0 (0.0-2.0); Blast Cells 0; Eosinophils % (manual) 0 (0-7); Metamyelocytes % 0; Myelocytes % 0; Promyelocytes % 0; Reactive Lymphocytes 0
[2019-09-18 09:03] LABS: BUN/Creatinine Ratio 32.1; Calcium 9.2 mg/dL (8.5-10.1); Potassium 3.5 mmol/L (3.5-5.1)
[2019-09-18] MEDS: KETOROLAC TROMETH 30 MG/ML 1ML VIAL IV PRN (09:16)
[2019-09-18] MEDS: POTASSIUM EFFERVESENT TAB 25 MEQ GT SCH (09:16)
[2019-09-18 09:37] LABS: Lymphocytes % (manual) 1 (10.0-50.0); Monocytes % (manual) 1 (0-12)
--- NOTE | 2019-09-18 09:45 | NUR ---
CALLED DR. SINGLETON: ORDERS TALKED WITH DR. SINGLETON ON PT'S CURRENT BP 173/75, HR 75. ORDERS GIVEN TO HOLD PO MEDICATIONS, STRICT NPO STATUS. GIVEN ORDERS FOR NITRO PATCH Q DAY. SEE EMAR FOR TIME GIVEN. CONTINUE CARE. SEE V/S FLOW SHEET FOR FURTHER INFORM. CONTINUE CARE.
[2019-09-18] MEDS: NITROGLYCERIN 0.2MG/HR TOPICAL PATCH TD SCH (09:58)
[2019-09-18] MEDS: DOXAZOSIN MESYL 2 MG TAB PO SCH (10:00)
--- NOTE | 2019-09-18 10:30 | NUR ---
DR. NUÑEZ AT BEDSIDE: ORDERS MD UPDATED ON PT'S CURRENT STATUS, LABS AND POC FOR TODAY. NO NEW CHANGES MADE TO CURRENT HIGH FLOW ON PATIENT, 35L AT 45% FIO2. MD WANTING PATIENT TO REMAINS STRICT NPO DUE TO HIGH RISK FOR ASPIRATION. CONTINUE CARE.
[2019-09-18] MEDS: ZINC SULFATE 220mg CAP or TAB PO SCH (10:58)
[2019-09-18] MEDS: METOPROLOL SUCCINATE XL 50 MG TAB PO SCH (10:58)
[2019-09-18] MEDS: METOCLOPRAMIDE HCL 10 MG TAB PO SCH ×2 (10:58→22:00)
[2019-09-18] MEDS: hydrALAZINE HCL 25 MG TAB PO SCH (10:58)
[2019-09-18] MEDS: CLOPIDOGREL BISULFATE 75 MG TAB PO SCH (10:58)
[2019-09-18] MEDS: ASCORBIC ACID 500 MG TAB PO SCH ×2 (10:59→22:00)
[2019-09-18] MEDS: LINEZOLID 600MG/300ML 300 ML IV SCH ×3 (11:24→23:49)
[2019-09-18] MEDS: LEVALBUTEROL HCL 1.25 MG/3 ML NEB NEB SCH ×3 (11:34→22:07)
[2019-09-18] MEDS: ACETYLCYSTEINE 10 %(100MG/ML) SOL 4ML NEB SCH ×3 (11:34→22:08)
[2019-09-18] MEDS: BUDESONIDE (INHALATION) 0.5 MG/2 ML NEB NEB SCH ×2 (11:34→22:07)
--- NOTE | 2019-09-18 11:35 | NUR ---
Nutrition Followup Note Wt 57.0 kg Pt`s extubated sleeping on BIPAP when rounded this am. pt continues to be NPO with no new diet orders Est Energy needs: 8161-9157 kcals (25-30 kcal/kgBW), Est Protein needs: 50-55 gms/day (1.0-1.1 gm/kgBW). Will continue to monitor and reassess prn. Labs: CO 39 , BUN 50 H, CREAT 1.72 H, GLU 253 H, ALB 2.0 L BM: Pt with 3 BMs 8/ per RN note Skin: BS 12 high risk, full details in med care manager note. PES: Altered nutrition related lab values r/t current medical condition aeb hyperglycemia, severe hypoalbuminemia Inadequate oral intake r/t current medical condition aeb pt with NPO diet order Comments: Will continue to monitor NPO status, skin status, pertinent labs and weight trends. Will f/u in 2-3 days. 1) Consider alternate nutrition if pt continues to be NPO >48 hours to meet > 75% of needs. 2) advance diet as medically feasible per ST eval 3) Continue current plan of care
--- NOTE | 2019-09-18 14:50 | NUR ---
FAMILY CALLED: UPDATE TALKED WITH PATIENT'S DAUGHTER, UPDATED HER ON PT'S CURRENT STATUS, LABS AND POC FOR TODAY. ALL QUESTIONS ANSWERED. CONTINUE CARE.
--- NOTE | 2019-09-18 20:10 | NUR ---
WE HAVE A CASE NUMBER FROM [facility]. CITY MANAGER CHECKED WITH HIS DOCTOR AND SHE IS NOT A CORONERS CASE. HE FEELS WHAT HAPPENED IS COMPLICATIONS FROM THE . PATIENT IS RELEASED. CALLED [facility]. THEY HAVE THE MOMS PHONE NUMBER. THEY HAVE CONTACTED OUR LAB FOR HER BLOOD. MOTHER SIGNED THE FORM. PATIENT WAS PRONOUNCED BY A DR ESCALERA. WE UNDERSTAND CPS PICKED UP THE CHILD TODAY. LINES ARE BEING REMOVED. Addendum: 09/18/19 at 2015 by CHEIKH MCDOWELL RN WRONG CHART
--- NOTE | 2019-09-18 21:15 | NUR ---
Family called Received a call from pt's dtr Brigid, updated on pt's status and facilitated her to speak to her mom through pt's own cell phone.
--- NOTE | 2019-09-18 22:02 | NUR ---
Patient bathe/linen change Patient given complete bath w/ CHG wipes. Skin integrity assessed for any changes. Linens and gown changed, cleansed sacrum and applied [id number]-kwaku, new optifoam placed. Patient repositioned for comfort.
--- NOTE | 2019-09-18 23:40 | NUR ---
Respiratory note: INCREASED PT FIO2 TO 60% AT THIS TIME PER O2 SAT OF 84%
[2019-09-19] VITALS (38 sets, daily range): BP systolic 130–202; BP diastolic 53–102
[2019-09-19] MEDS: PIPERACILLIN-TAZOB 2.25GM 50 ML IV SCH ×2 (01:10→05:53)
[2019-09-19 04:33] LABS: Basophils # (auto) 0 10 ^3/uL (0-0.2); Basophils % (auto) 0.1 % (0.0-2.0); Eosinophils # (auto) 0 10 ^3/uL (0-0.8); Hematocrit 31.9 % (36.0-46.0); Hemoglobin 10.2 g/dL (12.2-16.2); Lymphocytes # (auto) 0.4 10 ^3/uL (0.4-5.4); Lymphocytes % (auto) 1.4 % (10.0-50.0); Mean Corpuscular Hemoglobin 28.3 pg (28.0-32.0); Mean Corpuscular Hgb Conc. 31.9 g/dL (32.0-36.0); Mean Corpuscular Volume 88.6 fL (80.0-100.0); Monocytes # (auto) 1.4 10 ^3/uL (0-1.3); Monocytes % (auto) 4.8 % (0.0-12.0); Neutrophils # (auto) 26.6 10 ^3/uL (1.6-8.6); Neutrophils % (auto) 93.7 % (37.0-80.0); Platelet Count (auto) 305 10^3/uL (140-450); Red Cell Distribution Width 15.2 % (11.8-14.3); White Blood Cell 28.3 10^3/uL (4.4-10.8)
[2019-09-19 04:49] LABS: BUN/Creatinine Ratio 28.8; Calcium 9.3 mg/dL (8.5-10.1); Potassium 3.3 mmol/L (3.5-5.1)
[2019-09-19 04:53] LABS: Bilirubin, Total 0.6 mg/dL (0.2-1.0)
[2019-09-19] MEDS: methylPREDNISolone SOD SUCC 125 MG/2 ML VL IV SCH (05:53)
[2019-09-19] MEDS: FUROSEMIDE 20 MG TAB PO SCH (06:00)
[2019-09-19] MEDS: LEVOTHYROXINE SODIUM 50 MCG TAB PO SCH (06:11)
[2019-09-19] MEDS: ACETYLCYSTEINE 10 %(100MG/ML) SOL 4ML NEB SCH ×2 (06:45→14:35)
[2019-09-19] MEDS: LEVALBUTEROL HCL 1.25 MG/3 ML NEB NEB SCH ×2 (06:45→14:35)
--- NOTE | 2019-09-19 06:47 | NUR ---
RECEIVED PT ON HFNC ON SETTINGS OF 35 LPM, 60% FIO2. SPO2 94%. WILL OBTAIN ABG AND TITRATE SETTINGS INDICATED.
[2019-09-19] MEDS ORDERED: acetaZOLAMIDE SODIUM 500 MG VL IV ONE (07:00)
--- NOTE | 2019-09-19 09:00 | NUR ---
CRITICAL ABG RESULTS READ TO DR SINGLETON
--- NOTE | 2019-09-19 09:10 | NUR ---
PT PLACED ON BIPAP AT THIS TIME PER DR KOCH ORDERS. PT IS ON BIPAP 14/5 BUR 14, 40% FIO2. SPO2 88%. RR 27, HR 126, BP 143/ 93
[2019-09-19] MEDS ORDERED: POTASSIUM CHL 20MEQ/100ML 200 ML IV ONE (09:18)
[2019-09-19] MEDS: POTASSIUM CHL 20MEQ/100ML 100 ML IV SCH ×2 (09:29→11:10)
--- NOTE | 2019-09-19 09:30 | NUR ---
DR NUÑEZ AT BEDSIDE INCREASED FIO2 TO 45%.
[2019-09-19] MEDS: ASCORBIC ACID 500 MG TAB PO SCH (10:00)
[2019-09-19] MEDS ORDERED: ENOXAPARIN SOD 30 MG/0.3 ML SYRINGE SC SCH (10:00)
[2019-09-19] MEDS: ZINC SULFATE 220mg CAP or TAB PO SCH (10:00)
[2019-09-19] MEDS: DOXAZOSIN MESYL 2 MG TAB PO SCH (10:00)
[2019-09-19] MEDS: METOPROLOL SUCCINATE XL 50 MG TAB PO SCH (10:00)
[2019-09-19] MEDS: POTASSIUM EFFERVESENT TAB 25 MEQ GT SCH (10:00)
[2019-09-19] MEDS: CLOPIDOGREL BISULFATE 75 MG TAB PO SCH (10:00)
[2019-09-19] MEDS: hydrALAZINE HCL 25 MG TAB PO SCH (10:00)
[2019-09-19] MEDS: METOCLOPRAMIDE HCL 10 MG TAB PO SCH (10:00)
[2019-09-19] MEDS ORDERED: FUROSEMIDE 20 MG/2 ML VIAL IV SCH (10:00)
[2019-09-19] MEDS: BUDESONIDE (INHALATION) 0.5 MG/2 ML NEB NEB SCH (10:22)
--- NOTE | 2019-09-19 10:35 | NUR ---
DR NUÑZE AND DR SINGLETON UPDATED ON RECENT ABG RESULTS. .NEW ORDERS PER DR NUÑEZ TO PLACE PT ON HFNC.
--- NOTE | 2019-09-19 10:49 | NUR ---
PT PLACED ON HFNC, 60 LPM, 40% FIO2. HR 144, RR 27, SPO2 88%. RN ROSALIND AWARE OF HIGH FLOW PLACEMENT. PT PRESENTS WITH NO S/S OF RESPIRATORY DISTRESS.
[2019-09-19] MEDS: NITROGLYCERIN 0.2MG/HR TOPICAL PATCH TD SCH (11:10)
[2019-09-19] MEDS: KETOROLAC TROMETH 30 MG/ML 1ML VIAL IV PRN (11:23)
--- NOTE | 2019-09-19 11:30 | NUR ---
Resumed care at 0715, orders reviewed and ongoing assessments being done. Being treated for multiple problems. Upon arrival in bed and able to make needs known. Oriented to self and place. Reoriented to situation and plan of care. Able to move all entreaties and can assist with repositioning. In no acute respiratory distress and requiring high flow nasal cannula. Audible moist noise in her breath when speaking with moist nonproductive cough. Upon arrival in NSR in the 60's. Approximately at 0847 went into AFIB/AFLUTTER RVR, rate 140-170 and remains in AFIB/Alutter. She is asymptomatic. Contacted Dr. Salinas at 0906 am and made him aware of above. Reviewed data and medications. At this time she is strict NPO due to high risk for aspiration. Per Dr. Salinas held all am scheduled medications and obtained new orders for medications. Bhakti WHITEHEAD has been communicating with Dr. Salinas regarding ABG results, increased C02 levels and making appropriated changes to her oxygen delivery system. She is a modified Code status (BIPAP only). Placed on BIPAP at 0910 and ABG was drawn at 1010, results forward to Dr. Salinas and Dr. Nelson by Lou WHITEHEAD. She was placed back on high flow nasal cannula. Flow rate 65 with FIO2 40%. Have spoken to her daughter Nadia twice this shift and updated her on plan of care.
[2019-09-19] MEDS ORDERED: LABETALOL INJECTION 250 MG in SODIUM CHL 0.9% 200 ML IV ONE (12:00)
[2019-09-19] MEDS ORDERED: DIGOXIN (250MCG/ML) 2 ML AMPULE IV ONE (12:00)
--- NOTE | 2019-09-19 12:05 | NUR ---
Contacted Dr. Salinas at 1149 and made him aware of continuous AFIB/AFLUTTER with a rate 120-150's. Orders obtained for Digoxin to be administered and will start a Labetalol gtt.
[2019-09-19] MEDS: LINEZOLID 600MG/300ML 300 ML IV SCH (12:18)
--- NOTE | 2019-09-19 13:35 | NUR ---
ABG OBTAINED. TITRATED FIO2 TO 35%. PT IS NOW ON 60LPM, 35% FIO2. SPO2 RANGING 86-88%.
[2019-09-19] MEDS ORDERED: PIPERACILLIN-TAZOB 2.25GM 50 ML IV SCH (14:00)
[2019-09-19] MEDS ORDERED: TPN PER PHARMACY 0 ML IV SCH (14:45)
[2019-09-19] MEDS ORDERED: ACCU-CHEK COMFORT CURVE STRIP VI SCH (18:00)
[2019-09-19] MEDS ORDERED: InsuLIN REG 1unit/0.01ml Soln (100units/ml) SC SCH (18:00)
[2019-09-19] MEDS ORDERED: DEXTROSE (50%) 50ML SYRG IV SCH (18:00)
--- NOTE | 2019-09-19 18:30 | NUR ---
Contacted Dr. Salinas at 1715 to give him an update on condition and reviewed data. Made him aware that she converted to a sinus rhythm earlier but that she has remained hypertensive. SBP 160-170's. HR 55-65. Labetalol gtt infusing at 1mg/min. Per Dr. Salinas okay if SBP is <180. She remains communicative and able to make needs known. Remains on High Flow nasal cannula with flow rate of 65L/min and Fio2 down to 35%.
[2019-09-19] MEDS ORDERED: LABETALOL INJECTION 250 MG in SODIUM CHL 0.9% 200 ML IV SCH (18:45)
--- NOTE | 2019-09-19 20:40 | NUR ---
WHILE IN PATIENTS ' ROOM WHILE TRYING TO TALK WITH THE PATIENT SHE STARTS STARING AND BROUGHT HER HAND TO HER CHEST SHE WAS EXPERIENCING PAIN; ASKED IF SHE WAS HURTING, NO RESPONSE RECEIVED. NEXT MOMENT SHE WAS BRADICARDIC DOWN TO 40-30 AND DESATURATING. PT ON ON O2 HIGH FLOW 35%/ 65 LITERS. AWARE THAT PT IS MODIFIED CODE STATUS- BIPAP ONLY-, RT CALLED STAT FOR SUPPLEMENTAL O2. LABETALOL GTT TURNED OFF AT FIRST SIGNS OF BRADICARDIA. WHEN RT AT BEDSIDE PT WAS PULSELESS ,ASYSTOLIC. PT'S DAUGHTER ON THE PHONE ,NOTIFIED OF THE EVENT, PLANS TO REACH FAMILY. DR SINGLETON INFORMED BY THE LOAD BUILDER. THE HOSPITALIST ALSO PAGED TO PRONOUNCE.
--- NOTE | 2019-09-19 21:00 | NUR ---
SPOKE WITH DESIRAE, PATIENTS DAUGHTER, FAMILY HAS HAS NOT MADE ANY ARRANGEMENT RE. A HOUSE, WILL PROVIDE INFO IN THE MORNING, MEANWHILE A COMPANY WILL BE CONTACTED TO NUTRITION AIDES TEACHER THE BODY SINCE THERE IS NO ROOM IN THE [facility].
--- NOTE | 2019-09-19 21:27 | NUR ---
THE WAS PRONOUNCED BY GRAY RAZO.
[2019-09-19] MEDS ORDERED: methylPREDNISolone SOD SUCC 40 MG/ML VL IV SCH (22:00)
--- NOTE | 2019-09-19 22:29 | NUR ---
[facility] CONTACTED AND AFTER ASSESSING PATIENT'S DIAGNOSIS THE REPELMO OFFERED THE RELEASE NUMBER.
--- NOTE | 2019-09-19 22:31 | NUR ---
PATIENT,S DAUGHTER INFORMED THAT BODY WILL BE PICKED UP BY A HOME CHOSEN BY THE HOSPITAL , AND ALL BELONGINGS WILL BE AVAILABLE TO THE FAMILY TO SCHOOL PRINCIPAL IN THE MORNING IN ICU.
--- NOTE | 2019-09-19 22:39 | NUR ---
[employer] OFF[employer] CALLED, INFO GIVEN TO RAIN, THE [employer] LENS AS[employer]ER WILL CALL US BACK.
--- NOTE | 2019-09-19 23:15 | NUR ---
[employer] RETURNS OUR CALL AND RELEASES THE BODY TO THE HOME OF FAMILY'S CHOICE.
--- NOTE | 2019-09-19 23:46 | NUR ---
[facility] ACCEPTS TO TAKE THE BODY, SPOKE WITH LLOYD. WILL NOTIFY WHEN POSTMORTEM CARE COMPLETED.
--- NOTE | 2019-09-20 01:45 | NUR ---
BODY REMOVED BY [employer] ,PAPER WORK COMPLETED, PT'S BELONGINGS PLACED IN LABELED BAG TO BE HANDED TO FAMILY IN AM AGGREED.
--- NOTE | 2019-09-20 02:00 | NUR ---
CORRECTION TO PREVIOUS NOTE: BAG WITH BELONGINGS WAS TAKEN TO THE MORTUARY EMPLOYEES.WILL NOTIFY THE FAMILY.
[2019-09-22] MEDS ORDERED: cloNIDine 0.2 mg/24hr 7DAY PATCH TD SCH (07:00)
== END 2019-09-19 20:40 | disposition expired | DRG 853 ==
LOC: ER 04:40 → EDBD 04:40 → OVERFLOW 04:41 → EAST 09-09 21:20 → TELE-E-ADS 09-11 12:51 → TELE-EAST 09-11 21:32 → ICU WEST 09-13 23:14
PROVIDERS: ADMIT Internal Medicine Cardiovascular Disease; ATTEND Internal Medicine Cardiovascular Disease
PROC: 06HY33Z Insertion of Infusion Device into Lower Vein, Percutaneous Approach (ICD-10-PCS; 2019-09-09)
PROC: XW033E5 Introduction of Remdesivir Anti-infective into Peripheral Vein, Percutaneous Approach, New Technology Group 5 (ICD-10-PCS; 2019-09-09)
PROC: 5A1945Z Respiratory Ventilation, 24-96 Consecutive Hours (ICD-10-PCS; 2019-09-14)
PROC: 5A12012 Performance of Cardiac Output, Single, Manual (ICD-10-PCS; 2019-09-14)
PROC: 0BH17EZ Insertion of Endotracheal Airway into Trachea, Via Natural or Artificial Opening (ICD-10-PCS; 2019-09-14)
PROC: 0WCQ8ZZ Extirpation of Matter from Respiratory Tract, Via Natural or Artificial Opening Endoscopic (ICD-10-PCS; principal; 2019-09-15 15:45)
PROC: 5A09357 Assistance with Respiratory Ventilation, Less than 24 Consecutive Hours, Continuous Positive Airway Pressure (ICD-10-PCS; 2019-09-17)
PROC: 5A09357 Assistance with Respiratory Ventilation, Less than 24 Consecutive Hours, Continuous Positive Airway Pressure (ICD-10-PCS; 2019-09-19)
DX: A41.9 Sepsis, unspecified organism (principal); E43 Unspecified severe protein-calorie malnutrition; R65.21 Severe sepsis with septic shock; J18.9 Pneumonia, unspecified organism; J96.22 Acute and chronic respiratory failure with hypercapnia; E87.1 Hypo-osmolality and hyponatremia; I50.32 Chronic diastolic (congestive) heart failure; J44.1 Chronic obstructive pulmonary disease with (acute) exacerbation; E87.2 Acidosis; Z68.1 Body mass index [BMI] 19.9 or less, adult; E03.9 Hypothyroidism, unspecified; D64.9 Anemia, unspecified; E87.6 Hypokalemia; I11.0 Hypertensive heart disease with heart failure; Z85.6 Personal history of leukemia; Z86.73 Personal history of transient ischemic attack (TIA), and cerebral infarction without residual deficits; I48.0 Paroxysmal atrial fibrillation; Z99.81 Dependence on supplemental oxygen; Z90.49 Acquired absence of other specified parts of digestive tract; Z87.440 Personal history of urinary (tract) infections; Z66 Do not resuscitate; Z20.828 Contact with and (suspected) exposure to other viral communicable diseases
CPT/HCPCS: 36415; 36600; 71045; 80048; 80053; 81001; 82728; 82805; 82962; 83605; 83735; 83880; 85007; 85025; 85027; 85379; 85610; 85730; 86141; 87070; 87081; 87205; 93005; 94002; 94003; 94640; 94660; 96365; 96367; A4615; G0378; J0171; J0696; J1100; J1885; J2250; J2543; J2704; J3480; J7060